=== PATIENT | female | born 1990 | race Caucasian/White ===

== ENCOUNTER 2016-04-18 13:34 | Emergency (ER) | payer OTHER ==
[2016-04-18 13:44] VITALS: BP 144/82; PULSE 89; RESP 18; TEMP 97.3
--- NOTE | 2016-04-18 13:57 | ED ---
URI HPI - General Chief Complaint: Upper Respiratory Infection Stated Complaint: poss pneumonia/9 mos preg Time Seen by Provider: 04/18/16 13:46 Source: patient, RN notes reviewed Mode of arrival: ambulatory Limitations: no limitations - History of Present Illness Initial Comments: Patient's 26-year-old female presents emergency room for evaluation of cough and congestion. Patient states she's had congestion for the past week and a half. Patient states a 36 weeks . Patient states she's been taking the "safe Sudafed" and Tylenol with no relief of symptoms. Patient states over the past day or symptoms worse. Patient states having all over body aches, increased congestion and a productive cough. Patient states she is spitting up green mucus. Patient states she's also experiencing a headache and bilateral ear pain. Patient also states she has a slight sore throat. Patient states been having on and off late fevers. He denies nausea or vomiting. Patient denies abdominal pain. Patient states she didn't so filthy moving. Patient denies vaginal bleeding. Patient states she still smokes daily. She states she did receive her influenza vaccine this year. - Related Data Home Medications Medication Instructions Recorded Confirmed Acetaminophen Tab [Tylenol Tab] 1,000 mg PO Q6HR 04/15/16 04/15/16 Guaifenesin/Dextromethorphan 1 each PO 04/15/16 [Robitussin Scolq-Orngq-Ocuf Dm] Previous Rx's Medication Instructions Recorded Azithromycin [Zithromax Z-pack] 250 mg PO DIRECTED #6 tab 04/18/16 Allergies Allergy/AdvReac Type Severity Reaction Status Date / Time No Known Allergies Allergy Verified 04/18/16 13:45 Review of Systems ROS Statement: Those systems with pertinent positive or pertinent negative responses have been documented in the HPI. ROS Other: All systems not noted in ROS Statement are negative. Past Medical History Additional Past Medical History / Comment(s): back pain. benign tremors History of Any Multi-Drug Resistant Organisms: None Reported Additional Past Surgical History / Comment(s): 2 foot surgeries Past Psychological History: Anxiety, Depression, Panic Disorder Smoking Status: Light tobacco smoker Past Alcohol Use History: Rare Past Drug Use History: None Reported General Exam - General Exam Comments Initial Comments: Sitting in exam room, no acute distress. Limitations: no limitations General appearance: alert, in no apparent distress Head exam: Present: atraumatic, normocephalic, normal inspection Eye exam: Present: normal appearance ENT exam: Present: normal exam, mucous membranes moist, TM's normal bilaterally , normal external ear exam, other (pain on palpating over bilateral maxilary sinuses ) Expanded Throat exam: normal inspection Neck exam: Present: normal inspection Respiratory exam: Present: normal lung sounds bilaterally. Absent: respiratory distress Cardiovascular Exam: Present: regular rate, normal rhythm, normal heart sounds Extremities exam: Present: normal inspection Back exam: Present: normal inspection Neurological exam: Present: alert, oriented X3, CN II-XII intact, normal gait Psychiatric exam: Present: normal affect, normal mood Skin exam: Present: warm, dry, intact, normal color. Absent: rash Course Vital Signs 04/18/16 13:41 Temperature 97.3 F L Pulse Rate 89 Respiratory 18 Rate Blood Pressure 144/82 O2 Sat by Pulse 97 Oximetry Medical Decision Making - Medical Decision Making Patient's 26-year-old female presents emergency room for upper respiratory symptoms for a week and a half. Influenza negative. Will place patient on antibiotics and have her follow-up with her primary care provider. Patient states she understands everything that was discussed with her. Return parameters discussed. - Lab Data Lab Results 04/18/16 Range/Units 13:51 Influenza Type A RNA Not Detected (Not Detectd) Influenza Type B (PCR) Not Detected (Not Detectd) Disposition Clinical Impression: Sinusitis Disposition: HOME SELF-CARE Condition: Good Instructions: Rhinosinusitis (ED) Additional Instructions: Take antibiotics as directed. Please follow-up with primary care provider in 24 -48 hours for reevaluation. If any new symptom arises, symptoms worsen or fever develops, return to ER as soon as possible. Prescriptions: Azithromycin [Zithromax Z-pack] 250 mg PO DIRECTED #6 tab Referrals: Dano Parra MD [Primary Care Provider] - 1-2 days Time of Disposition: 14:48
== END 2016-04-18 15:00 | disposition home or self-care (01) ==
LOC: EC 13:34
DX: O26.893 Other specified pregnancy related conditions, third trimester (principal); J32.9 Chronic sinusitis, unspecified; Z79.899 Other long term (current) drug therapy; Z3A.36 36 weeks gestation of pregnancy
CPT/HCPCS: 87502; 99283

== ENCOUNTER 2016-05-07 13:24 | Emergency (ER) | payer OTHER ==
[2016-05-07 13:31] VITALS: BP 164/79; PULSE 61; RESP 18; TEMP 97.3
[2016-05-07] MEDS ORDERED: FLUCONAZOLE 150 MG TAB PO STA (13:47)
--- NOTE | 2016-05-07 13:51 | ED ---
Female Urogenital HPI - General Chief complaint: Urogenital Stated complaint: Stiches / Pain/irratation Time Seen by Provider: 05/07/16 13:42 Source: patient, RN notes reviewed Mode of arrival: ambulatory Limitations: no limitations - History of Present Illness Initial comments: 26 yo female presents to the ER with a chief complaint of vaginal itching and dryness. Patient states that she recently did have a child about a week ago. Patient states that her stitches are itchy but she is also just having some itching and dryness to the vaginal area. Patient states that she has less little bit of white discharge as well. Patient denies any fever or chills. Patient states that she is still having some bleeding associated with this. Patient denies any abdominal pain. Patient states that she try to see [employer] in town however they referred her cardiac him here to be seen. Patient states that she is not currently having any other symptoms at this time. Patient denies any recent fever, chills, shortness of breath, chest pain, back pain, abdominal pain, nausea vomiting, numbness or tingling, dysuria or hematuria, constipation or diarrhea, headaches or visual changes, or any other current symptoms. - Related Data Home Medications Medication Instructions Recorded Confirmed Docusate [Colace] 100 mg PO HS 05/07/16 05/07/16 Ferrous Sulfate [Feosol] 325 mg PO DAILY 05/07/16 05/07/16 Ibuprofen [Motrin] 600 mg PO Q8HR PRN 05/07/16 05/07/16 Previous Rx's Medication Instructions Recorded Fluconazole [Diflucan] 150 mg PO ONCE #1 tab 05/07/16 Allergies Allergy/AdvReac Type Severity Reaction Status Date / Time No Known Allergies Allergy Verified 05/07/16 13:41 Review of Systems ROS Statement: Those systems with pertinent positive or pertinent negative responses have been documented in the HPI. ROS Other: All systems not noted in ROS Statement are negative. Past Medical History Additional Past Medical History / Comment(s): back pain. benign tremors History of Any Multi-Drug Resistant Organisms: None Reported Additional Past Surgical History / Comment(s): 2 foot surgeries Past Psychological History: Anxiety, Depression, Panic Disorder Smoking Status: Light tobacco smoker Past Alcohol Use History: None Reported Past Drug Use History: None Reported General Exam Limitations: no limitations Head exam: Present: atraumatic, normocephalic, normal inspection Respiratory exam: Present: normal lung sounds bilaterally. Absent: respiratory distress, wheezes, rales, rhonchi, stridor Cardiovascular Exam: Present: regular rate, normal rhythm, normal heart sounds. Absent: systolic murmur, diastolic murmur, rubs, gallop, clicks GI/Abdominal exam: Present: soft, normal bowel sounds. Absent: distended, tenderness, guarding, rebound, rigid External exam: Present: lacerations (Sutures are intact well healing no drainage or induration), other (Patient does appear to have some white discharge along with blood) Extremities exam: Present: normal inspection, full ROM, normal capillary refill. Absent: tenderness, pedal edema, joint swelling, calf tenderness Back exam: Present: normal inspection Neurological exam: Present: alert, oriented X3, CN II-XII intact. Absent: motor sensory deficit Psychiatric exam: Present: normal affect, normal mood Skin exam: Present: warm, dry, intact, normal color. Absent: rash Course Vital Signs 05/07/16 13:27 Temperature 97.3 F L Pulse Rate 61 Respiratory 18 Rate Blood Pressure 164/79 O2 Sat by Pulse 98 Oximetry Medical Decision Making - Medical Decision Making 26-year-old female presents female presents to the emergency room chief complaint of vaginal itching and what appears to white discharge. This time we discussed that is most likely bubble candidiasis. This time we discussed we will give her a pill here that should clear it up. Discussed follow-up with her [employer] we discussed return parameters. The patient stated that she understood all cushions have been answered. She will be discharged. Disposition Clinical Impression: Vulvovaginal candidiasis Disposition: HOME SELF-CARE Condition: Stable Instructions: Vulvovaginal Candidiasis (ED) Additional Instructions: Please use medication as discussed. Please follow up with family doctor if symptoms have not improved over the next two days. Please return to the emergency room if your symptoms increase or worsen or for any other concerns. Prescriptions: Fluconazole [Diflucan] 150 mg PO ONCE #1 tab Referrals: Dano Parra MD [Primary Care Provider] - 1-2 days Time of Disposition: 13:50
== END 2016-05-07 14:00 | disposition home or self-care (01) ==
LOC: EC 13:24
DX: B37.3 Candidiasis of vulva and vagina (principal); F17.200 Nicotine dependence, unspecified, uncomplicated; Z79.899 Other long term (current) drug therapy
CPT/HCPCS: 99282

== ENCOUNTER → 2016-09-13 | Outpatient (CLI) | payer OTHER ==
--- NOTE | 2016-09-13 11:44 | XR ---
EXAM TYPE: LUMBAR SPINE X RAY SERIES COMPARISON: 04/20/2015 HISTORY: Lower back pain TECHNIQUE: 4 views are submitted. FINDINGS: Alignment is anatomic. The pedicles are intact. The transverse processes are intact. There is no s pondylolysis or spondylolisthesis. Minimal curvature of the spine. Mild facet arthropathy L5-S1. Mild loss of disc space at multiple lev els with severe changes L5-S1. IMPRESSION: 1. Multilevel degenerative disc disease with severe changes L5-S1 which appears stable.
== END | disposition home or self-care (01) ==
LOC: RADXRMAIN 11:05
PROVIDERS: ATTEND Family Medicine
DX: M51.37 Other intervertebral disc degeneration, lumbosacral region (principal)
CPT/HCPCS: 72110

== ENCOUNTER → 2016-10-29 | Outpatient (CLI) | payer OTHER ==
--- NOTE | 2016-10-29 15:38 | MR ---
EXAMINATION TYPE: MR lumbar spine wo con DATE OF EXAM: 10/29/2016 COMPARISON: Prior lumbar MRI 11/21/2014 and plain film 09/13/2016 HISTORY: low back pain TECHNIQUE: Multiplanar, multisequence images of the lumbar spine were acquired. L1-L2: Normal disc appearance without desiccation. No herniation, protrusion or disc bulging. No ca nal stenosis is present. Foramina are patent bilaterally. L2-L3: Normal disc appearance without desiccation. No herniation, protrusion or disc bulging. No ca nal stenosis is present. Foramina are patent bilaterally. L3-L4: Normal disc appearance without desiccation. No herniation, protrusion or disc bulging. No ca nal stenosis is present. Foramina are patent bilaterally. L4-L5: Small central posterior disc bulge causes anterior mass effect on the thecal sac. No significa nt central stenosis. L5-S1: Interval right posterior paracentral disc herniation with extension of disc material posterior to the S1 vertebral body likely contacting causing mass effect on the right S1 nerve root, anterior lateral thecal sac. Circumferential extension of endplate disc complex is noted as on prior exam. Lumbar segments are intact. No paraspinal masses are identified. Conus medullaris has a normal appe arance. There is a spinal curvature. Lumbar vertebral bodies show preserved height. Minimal retrolist hesis grade 1 L5-S1, endplate discogenic marrow signal change is present with associated loss of disc height and signal, loss of disc height and signal also present at L4-5. IMPRESSION: Interval progression of disc herniation L5-S1 as described, correlate for right S1 radiculopathy. Spi nal curvature.
== END ==
LOC: RADMRIMAIN 13:44
PROVIDERS: ATTEND Family Medicine
DX: M51.27 Other intervertebral disc displacement, lumbosacral region (principal)
CPT/HCPCS: 72148

== ENCOUNTER 2017-01-04 14:02 | Emergency (ER) | payer OTHER ==
[2017-01-04 14:16] VITALS: BP 135/62; PULSE 70; RESP 18; TEMP 97.5
--- NOTE | 2017-01-04 14:26 | ED ---
General Adult HPI - General Chief complaint: Dental/Oral Stated complaint: Dental Pain Time Seen by Provider: 01/04/17 14:16 Source: patient, RN notes reviewed Mode of arrival: ambulatory Limitations: no limitations - History of Present Illness Initial comments: Patient 26-year-old female who presents emergency room today with a chief complaint of increased dental pain. She has mid to a dental fracture of tooth # 15 and 14. States she's having several months ago. She states over the last few days she's had some increased pain. She admits to a copper taste. She admits to feeling some pain radiate to the left cheek area. She states feels flushed on that side. She denies any other complaints or associated symptoms. Patient denies any recent fever, chills, shortness of breath, chest pain, back pain, abdominal pain, nausea or vomiting, numbness or tingling, dysuria or hematuria, constipation or diarrhea, headaches or visual changes, or any other complaints. - Related Data Home Medications Medication Instructions Recorded Confirmed Docusate [Colace] 100 mg PO HS 05/07/16 05/07/16 Ferrous Sulfate [Feosol] 325 mg PO DAILY 05/07/16 05/07/16 Ibuprofen [Motrin] 600 mg PO Q8HR PRN 05/07/16 05/07/16 Previous Rx's Medication Instructions Recorded Fluconazole [Diflucan] 150 mg PO ONCE #1 tab 05/07/16 Acetaminophen-Codeine 300-30mg 1 each PO Q6H PRN #15 tablet 01/04/17 [Tylenol #3] Penicillin V Potassium [Pen Vee K] 500 mg PO QID 10 Days 01/04/17 Allergies Allergy/AdvReac Type Severity Reaction Status Date / Time No Known Allergies Allergy Verified 05/07/16 13:41 Review of Systems ROS Statement: Those systems with pertinent positive or pertinent negative responses have been documented in the HPI. ROS Other: All systems not noted in ROS Statement are negative. Past Medical History Additional Past Medical History / Comment(s): back pain. benign tremors History of Any Multi-Drug Resistant Organisms: None Reported Additional Past Surgical History / Comment(s): 2 foot surgeries Past Psychological History: Anxiety, Depression, Panic Disorder Smoking Status: Light tobacco smoker Past Alcohol Use History: None Reported Past Drug Use History: None Reported General Exam - General Exam Comments Initial Comments: General: The patient is awake and alert, in no distress, and does not appear acutely ill. Eye: Pupils are equal, round and reactive to light, extra-ocular movements are intact. No nystagmus. There is normal conjunctiva bilaterally. No signs of icterus. Ears, nose, mouth and throat: There are moist mucous membranes and no oral lesions. Poor dental hygiene. Does have some dental fractures of 14/15. She is locally tender in the gumline. No sign of abscess. Uvula midline. Patient swallows without difficulty. Neck: The neck is supple, there is no tenderness or JVD. Cardiovascular: There is a regular rate and rhythm. No murmur, rub or gallop is appreciated. Respiratory: Lungs are clear to auscultation, respirations are non-labored, breath sounds are equal. No wheezes, stridor, rales, or rhonchi. Musculoskeletal: Normal ROM, no tenderness. Strength 5/5. Sensation intact. Pulses equal bilaterally 2+. Neurological: A&O x 3. CN II-XII intact, There are no obvious motor or sensory deficits. Coordination appears grossly intact. Speech is normal. Skin: Skin is warm and dry and no rashes or lesions are noted. Psychiatric: Cooperative, appropriate mood & affect, normal judgment. Limitations: no limitations Course Vital Signs 01/04/17 14:12 Temperature 97.5 F L Pulse Rate 70 Respiratory 18 Rate Blood Pressure 135/62 O2 Sat by Pulse 98 Oximetry Disposition Clinical Impression: Pain, dental Disposition: HOME SELF-CARE Condition: Good Instructions: Dental Abscess (ED) Additional Instructions: Please use antibiotic and pain medication as prescribed and return here to the emergency room symptoms increase worsen. Please follow-up dentist over the next 2-5 days. Prescriptions: Acetaminophen-Codeine 300-30mg [Tylenol #3] 1 each PO Q6H PRN #15 tablet PRN Reason: Pain Penicillin V Potassium [Pen Vee K] 500 mg PO QID 10 Days Referrals: Dano Parra MD [Primary Care Provider] - 1-2 days Time of Disposition: 14:25
== END 2017-01-04 15:00 | disposition home or self-care (01) ==
LOC: EC 14:02
DX: S02.5XXA Fracture of tooth (traumatic), initial encounter for closed fracture (principal); F17.200 Nicotine dependence, unspecified, uncomplicated; Z79.899 Other long term (current) drug therapy; X58.XXXA Exposure to other specified factors, initial encounter
CPT/HCPCS: 99282

== ENCOUNTER → 2017-01-11 | Outpatient (CLI) | payer OTHER ==
[2017-01-11 14:29] VITALS: BP 150/83; PULSE 56; RESP 56; TEMP 98.3
--- NOTE | 2017-01-12 08:23 | P.CONS ---
History of Present Illness - Reason for Consult Consult date: 01/11/17 - History of Present Illness This is 26 years old female with a chronic history of severe low back pain started 5 years ago, she denies any initiating event she reported the pain started while she was trying to get out of bed, she denies any history of trauma or car accidents or heavy lifting, the pain is constant radiated to the lower extremity she describes her pain as a cramping shooting pain associated with spasm in the lower extremity radiated to the lower extremity bilaterally but it is more intense on the right side, she never tried physical therapy she tried different kind of pain medication and she reports none of them helped significantly, she describes the intensity of the pain as 6/10 and increases with any activity walking bending, sitting all these factors aggravate her pain , is currently on Robaxin 750 mg 3 times a day and Gardner 5/325 2 times a day, she denies any fever or night sweats she denies any change in the bowel movement or urination and she had no motor or sensory deficits, and she denies any side effect of the medication Past Medical History Additional Past Medical History / Comment(s): 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, herniated disks, sciatica History of Any Multi-Drug Resistant Organisms: None Reported Additional Past Surgical History / Comment(s): 2 left foot surgeries(ORIF) Past Anesthesia/Blood Transfusion Reactions: No Reported Reaction Smoking Status: Current every day smoker - Past Family History Mother Family Medical History: No Reported History Medications and Allergies Home Medications Medication Instructions Recorded Confirmed Type Diclofenac Sodium [Voltaren] 75 mg PO BID 01/09/17 01/09/17 History Hydrocodone/Acetaminophen [Gardner 1 tab PO BID PRN 01/09/17 01/09/17 History 5-325] Norgestimate-Ethinyl Estradiol 1 each PO DAILY 01/09/17 01/09/17 History [Ortho Tri-Cyclen 28 Tablet] PARoxetine [Paxil] 20 mg PO DAILY 01/09/17 01/09/17 History Methocarbamol [Robaxin-750] 1 tab PO TID 01/11/17 01/11/17 History Penicillin V Potassium [Pen Vee K] 1 tab PO BID 01/11/17 01/11/17 History Allergies Allergy/AdvReac Type Severity Reaction Status Date / Time No Known Allergies Allergy Verified 01/09/17 14:36 Physical Exam Vitals: Vital Signs Temp Pulse Resp BP Pulse Ox 01/11/17 14:20 98.3 F 56 L 56 H 150/83 98 Social history : smoker , NO ETOH , NO Illegal drugs use Review of Systems : 1- Constitutional : no chills , no fever , no night sweats , 2- Ears : no ear discharge , no change in hearing 3-Nose, Mouth ,Throat ; no bleeding gums, no sore throat , no epistaxis , 4-Cardiovascular : Denies chest pain, , no orthopnea , no palpitation 5-Respiratory : Denies cough , no dyspnea , no hemoptysis 6-Gastrointestinal :, no change in bowel habits , no coffee- ground emesis . 7-Genitourinary : No hematuria , no discharge , no incontinence, 8-Musculoskeletal : No gait dysfunction , report low back pain , 9- Neurological : no ataxia , no tremor , no sezure , 10-Psychatric , no suicidal ideation no hallucination 11- Endocrine : no cold intolerence , no polyuria , no polydypsia , 12-Hematologic : no easy bleeding , no easy brusing , 13-Allergic / immunology : no angioedema , no wheezing ,no allergic rhinitis 14-Integumentary : no brttle nails , no change hair / nails , no foot/leg ulcers . Physical Examinations : 1-Constitutional : Cooperative , not in acute distress . 2-HEENT : nech ; supple , no Lymphadenopathy , no Thyromegaly , :eyes , no icterus, no photophobia . ENT : , normal oropharynx , no Thrush 3- Respiratory : Chest clear to auscultations Bilaterally , no wheezing . 4- Cardiovascular : regular rate and rhythem , S1 , S2 , no S3 , no S4. 5- Gastrointestinal: abdomen soft no tenderness , no organomegally . 6- Genitourinary : Defferred . 7-Integumentary : No cellulitis , no ulcers , normal skin turgor , no cyanotic . 8- neurologic : Cranial nerve II to XII intact , no focal neurological deffecit 9-psychatric : alert , oriented X 3 , appropriate affect , intact judgment and insight . 10-Lymphatic : no Lymphadenopathy. 11- musculoskeltal: Lumber spine moter stegnth lower extremities ,thigh and legs 5/5 Right side , 5/5 Left side deep tendon reflexes : normal Knee Jerk , normal ankle Jerk positive lumber facet Loading Test Range of motion of the lumbar spine Flexion 30 degrees, extension 10 degrees strait leg raising test , positive at 30 degree right side , positive on the left side at 45 Fabere test positive RT and positive LT . Results Comments: MRI of the lumbar spine= L5-S1 disc herniation, L4 5 disc bulging Assessment and Plan Plan: Assessment and plan= Lumbar radiculitis, lumbar herniated disc disease Recommend discontinuing Robaxin patient reported that she had no benefit from it, start patient on Zanaflex 4 mg every 8 hours, start patient on Motrin 800 mg 3 times a day, start Neurontin 300 mg daily at bedtime and increase gradually to twice a day Patient should continue her pain medication Gardner's 5/325 , she is getting prescriptions from her primary care Referred patient to have physical therapy evaluation and treatment, patient could benefit from lumbar epidural steroid injections under fluoroscopy guidance procedure risks and benefits and alternatives discussed with the patient and she agreed with proceeding Time with Patient: Greater than 30
== END | disposition home or self-care (01) ==
LOC: PNWHC3 13:47
PROVIDERS: ATTEND Specialist
DX: M51.16 Intervertebral disc disorders with radiculopathy, lumbar region (principal); F17.200 Nicotine dependence, unspecified, uncomplicated; Z79.891 Long term (current) use of opiate analgesic; Z79.899 Other long term (current) drug therapy
CPT/HCPCS: 99211

== ENCOUNTER 2017-06-10 17:16 | Emergency (ER) | payer OTHER ==
[2017-06-10 17:26] VITALS: BP 129/68; PULSE 78; RESP 20; TEMP 97
--- NOTE | 2017-06-10 17:56 | ED ---
ENT HPI - General Chief complaint: Dental/Oral Stated complaint: dental pain Time Seen by Provider: 06/10/17 17:34 Source: patient, RN notes reviewed Mode of arrival: ambulatory Limitations: no limitations - History of Present Illness Initial comments: This is a 27 year old female who presents to the emergency department with chief complaint of dental pain. Patient states that she developed left-sided dental pain 2-3 weeks ago. She states that she feels like she may have an abscess. She states that she does not have a dentist to follow-up with. She complains of pain in the left upper and lower molars. She states that at night the pain gets worse and she develops swelling of her left cheek. Denies any drainage. Denies any fevers or chills. Denies chest pain, shortness of breath, abdominal pain, nausea or vomiting, constipation or diarrhea, dysuria or hematuria, numbness or tingling, headache or vision changes. - Related Data Home Medications Medication Instructions Recorded Confirmed Diclofenac Sodium [Voltaren] 75 mg PO BID 01/09/17 03/02/17 Norgestimate-Ethinyl Estradiol 1 each PO DAILY 01/09/17 03/02/17 [Ortho Tri-Cyclen 28 Tablet] PARoxetine [Paxil] 20 mg PO DAILY 01/09/17 03/02/17 Methocarbamol [Robaxin-750] 1 tab PO TID 01/11/17 03/02/17 Gabapentin [Neurontin] 300 mg PO BID 03/02/17 03/02/17 tiZANidine [Zanaflex] 4 mg PO Q8HR 03/02/17 03/02/17 Previous Rx's Medication Instructions Recorded Ibuprofen 600 mg PO Q6HR #20 tablet 06/10/17 Penicillin V Potassium [Pen Vee K] 500 mg PO QID 10 Days tab 06/10/17 Allergies Allergy/AdvReac Type Severity Reaction Status Date / Time No Known Allergies Allergy Verified 06/10/17 17:26 Review of Systems ROS Statement: Those systems with pertinent positive or pertinent negative responses have been documented in the HPI. ROS Other: All systems not noted in ROS Statement are negative. Past Medical History Additional Past Medical History / Comment(s): 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, herniated disks, sciatica. WAS DX YEARS AGO WITH BENIGN TREMORS IN HANDS. lumbar epidural History of Any Multi-Drug Resistant Organisms: None Reported Additional Past Surgical History / Comment(s): 2 left foot surgeries(ORIF), HAVING FIRST PAIN PROCEDURE TODAY Past Anesthesia/Blood Transfusion Reactions: No Reported Reaction, Motion Sickness Past Psychological History: Anxiety, Bipolar, Depression, Panic Disorder Smoking Status: Current every day smoker Past Alcohol Use History: None Reported Past Drug Use History: Marijuana - Past Family History Mother History Unknown: Yes Family Medical History: No Reported History Additional Family Medical History / Comment(s): MOM HAD THYROID CANCER General Exam - General Exam Comments Initial Comments: General: Awake and alert, well-developed; in no apparent distress. Sitting on ED stretcher drinking a can of Coke. HEENT: Head atraumatic, normocephalic. Pupils are equal, round and reactive to light. Extraocular movements intact. Oropharynx moist without erythema or exudate. Poor dentition throughout with multiple missing teeth and dental caries. Tenderness on palpation of upper left and lower left gumline. Tooth # 15 and #18 are noted to be brown in appearance and missing pieces of the crown. No masses or areas of fluctuance noted. Neck: Supple. Normal ROM. Cardiovascular: Regular rate and rhythm. No murmurs, rubs or gallops. Chest symmetrical. Respiratory: Lungs clear to auscultation bilaterally. No wheezes, rales or rhonchi. Normal respiratory effort with no use of accessory muscles. Musculoskeletal: Normal ROM, no tenderness bilateral upper and lower extremities. Ambulating normally. Skin: [place], warm and dry without rashes or lesions. Neurological: Alert and oriented x3. CN II-XII grossly intact. Speech is fluent and answers are appropriate. No focal neuro deficits. Psychiatric: Normal mood and affect. No overt signs of depression or anxiety noted. Limitations: no limitations Course Vital Signs 06/10/17 17:24 Temperature 97.0 F L Pulse Rate 78 Respiratory 20 Rate Blood Pressure 129/68 O2 Sat by Pulse 96 Oximetry Medical Decision Making - Medical Decision Making This is a 27-year-old female who presents to the emergency department with chief complaint of dental pain. No masses or areas of fluctuance are noted. Patient has very poor dentition throughout out. She will be started on antibiotics as well as ibuprofen. Patient is in no acute distress and vital signs are stable. She will be discharged home. Recommended follow-up with a dentist. She is in agreement with plan and voices understanding. All questions were answered. Disposition Clinical Impression: Toothache, Dental caries Disposition: HOME SELF-CARE Condition: Good Instructions: Dental Caries (ED), Toothache (ED) Additional Instructions: Please take medications as prescribed. Please follow up with primary care provider within 1-2 days. Return to emergency department if symptoms should worsen or any concerns arise. Please follow up with the [facility] dental clinic. [facility] [place] [address]. Phone number for new patients or [phone] for existing patients. Prescriptions: Ibuprofen 600 mg PO Q6HR #20 tablet Penicillin V Potassium [Pen Vee K] 500 mg PO QID 10 Days tab Referrals: Dano Parra MD [Primary Care Provider] - 1-2 days Time of Disposition: 17:55
== END 2017-06-10 17:58 | disposition home or self-care (01) ==
LOC: EC 17:16
DX: K02.9 Dental caries, unspecified (principal); M19.90 Unspecified osteoarthritis, unspecified site; F41.9 Anxiety disorder, unspecified; F31.9 Bipolar disorder, unspecified; F17.200 Nicotine dependence, unspecified, uncomplicated; Z79.1 Long term (current) use of non-steroidal anti-inflammatories (NSAID); Z79.3 Long term (current) use of hormonal contraceptives; Z79.899 Other long term (current) drug therapy
CPT/HCPCS: 99282

== ENCOUNTER 2017-07-08 18:36 | Emergency (ER) | payer OTHER ==
[2017-07-08] MEDS ORDERED: DIPH,PERTUS(ACELL)TETVAC-LF 0.5 ML VIAL IM ONE (18:51)
--- NOTE | 2017-07-08 18:56 | ED ---
Wound/Laceration HPI - General Chief Complaint: Wound/Laceration Stated Complaint: Head injury,fall Time Seen by Provider: 07/08/17 18:37 Source: patient, EMS, RN notes reviewed, old records reviewed Mode of arrival: EMS Limitations: no limitations - History of Present Illness Initial Comments: 27-year-old female persist emergency Department chief complaint laceration over her scalp and a fall from standing. She reports that she was going down the stairs and tripped over her slippers. Patient reports that she fell backward in her head on the spindle of the handrail. She states that she noticed on the blood and call the ambulance and was brought here. She states that she's had no loss conscious. She denies any significant neck pain. She does have range of motion. She is placed in a c-collar and her from EMS. Patient has had no other extremity injuries or any other injuries related to the fall. - Related Data Home Medications Medication Instructions Recorded Confirmed Methocarbamol [Robaxin-750] 750 mg PO QID PRN 01/11/17 07/08/17 DULoxetine HCL [Cymbalta] 30 mg PO BID 06/10/17 07/08/17 Gabapentin [Neurontin] 300 mg PO BID 06/10/17 07/08/17 Norg-Ee 1 tab PO DAILY 06/10/17 07/08/17 Primidone [Mysoline] 50 mg PO DAILY 06/10/17 07/08/17 clonazePAM [KlonoPIN] 1 mg PO Q12H 06/10/17 07/08/17 Ibuprofen 600 mg PO Q6HR PRN 07/08/17 07/08/17 Allergies Allergy/AdvReac Type Severity Reaction Status Date / Time No Known Allergies Allergy Verified 07/08/17 19:57 Review of Systems ROS Statement: Those systems with pertinent positive or pertinent negative responses have been documented in the HPI. ROS Other: All systems not noted in ROS Statement are negative. Past Medical History Additional Past Medical History / Comment(s): 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, herniated disks, sciatica. WAS DX YEARS AGO WITH BENIGN TREMORS IN HANDS. lumbar epidural History of Any Multi-Drug Resistant Organisms: None Reported Additional Past Surgical History / Comment(s): 2 left foot surgeries(ORIF), HAVING FIRST PAIN PROCEDURE TODAY Past Anesthesia/Blood Transfusion Reactions: No Reported Reaction, Motion Sickness Past Psychological History: Anxiety, Bipolar, Depression, Panic Disorder Smoking Status: Current every day smoker Past Alcohol Use History: None Reported Past Drug Use History: Marijuana - Past Family History Mother History Unknown: Yes Family Medical History: No Reported History Additional Family Medical History / Comment(s): MOM HAD THYROID CANCER General Exam - General Exam Comments Initial Comments: This is a 27-year-old female. Alert and oriented. No distress. Limitations: no limitations General appearance: alert, in no apparent distress Head exam: Present: normocephalic, normal inspection, other (5.5 cm laceration over the left parietal scalp.). Absent: atraumatic Eye exam: Present: normal appearance, PERRL, EOMI. Absent: scleral icterus, conjunctival injection, periorbital swelling ENT exam: Present: normal exam, mucous membranes moist Neck exam: Present: normal inspection. Absent: tenderness, meningismus, lymphadenopathy Respiratory exam: Present: normal lung sounds bilaterally. Absent: respiratory distress, wheezes, rales, rhonchi, stridor Cardiovascular Exam: Present: regular rate, normal rhythm, normal heart sounds. Absent: systolic murmur, diastolic murmur, rubs, gallop, clicks GI/Abdominal exam: Present: soft, normal bowel sounds. Absent: distended, tenderness, guarding, rebound, rigid Extremities exam: Present: normal inspection, full ROM, normal capillary refill. Absent: tenderness, pedal edema, joint swelling, calf tenderness Back exam: Present: normal inspection Psychiatric exam: Present: normal affect, normal mood Skin exam: Present: warm, dry, intact, normal color. Absent: rash Course Vital Signs 07/08/17 07/08/17 18:43 20:05 Temperature 98.6 F Pulse Rate 80 67 Respiratory 20 16 Rate Blood Pressure 152/91 128/71 O2 Sat by Pulse 97 97 Oximetry Procedures - Laceration Laceration #1 Site: scalp Size (cm): 6 Description: linear Depth: simple, single layer Pre-repair: wound explored, irrigated extensively Type of Sutures: other (mateusz) Number of Sutures: 7 Patient Tolerated Procedure: well, no complications Medical Decision Making - Medical Decision Making 27-year-old female persist emergency Department chief complaint laceration over her scalp and a fall from standing. She reports that she was going down the stairs and tripped over her slippers. Patient reports that she fell backward in her head on the spindle of the handrail. She states that she noticed on the blood and call the ambulance and was brought here. She states that she's had no loss conscious. She has a 5.5 cm laceration over scalp, irrigated and cleaned. She was given 7 mateusz and wound closed well. PAtient CT brain is normal. Advised on head injury instructions and suture care. Given tetanus update as well. All questions answered and return parametrs discussed. - Radiology Data Radiology results: report reviewed CT brain is a for intracranial hemorrhage. Mass effect or midline shift noted. No significant changes from prior. Disposition Clinical Impression: Scalp laceration, Fall Disposition: HOME SELF-CARE Condition: Good Instructions: Staple Care (ED) Additional Instructions: Please return to the emergency room in 8-10 days to have sutures removed. Please leave wound covered for the first 24-48 hours and then leave open to air after that time. Please use clean soap and water to clean the suture area to prevent scabbing over the top of your sutures. Please watch for any signs of infection which may include but not limited to increased pain, swelling, redness , fever or chills. Please return to the emergency room if any signs of infection do occur. Please return to the emergency room for any other concerns or complications. Referrals: Dano Parra MD [Primary Care Provider] - 1-2 days Time of Disposition: 19:49
--- NOTE | 2017-07-08 19:46 | CT ---
EXAMINATION TYPE: CT brain wo con DATE OF EXAM: 07/08/2017 COMPARISON: CT brain April 07, 2015 HISTORY: Fall, head injury left top of scalp laceration CT DLP: 1017.9 mGycm. Automated Exposure Control for Dose Reduction was Utilized. TECHNIQUE: CT scan of the head is performed without contrast. FINDINGS: There is no acute intracranial hemorrhage, mass effect, or midline shift identified. The ventricles and sulci are within normal limits in size. The globes are intact bilaterally. Mucous re tention cysts or polyps in bilateral maxillary sinuses are redemonstrated. The calvarium is intact. IMPRESSION: No acute intracranial hemorrhage, mass effect, or midline shift is seen. No significant change from prior.
[2017-07-08 22:45] VITALS: BP 128/71; PULSE 67; RESP 16; TEMP 98.6
== END 2017-07-08 20:06 | disposition home or self-care (01) ==
LOC: EC 18:36
DX: S01.01XA Laceration without foreign body of scalp, initial encounter (principal); F31.9 Bipolar disorder, unspecified; F41.9 Anxiety disorder, unspecified; F41.0 Panic disorder [episodic paroxysmal anxiety]; F17.200 Nicotine dependence, unspecified, uncomplicated; Z79.899 Other long term (current) drug therapy; Z79.3 Long term (current) use of hormonal contraceptives; Z23 Encounter for immunization; W10.9XXA Fall (on) (from) unspecified stairs and steps, initial encounter; Y92.009 Unspecified place in unspecified non-institutional (private) residence as the place of occurrence of the external cause
CPT/HCPCS: 12002; 70450; 90471; 90715; 99284

== ENCOUNTER 2017-11-29 18:38 | Emergency (ER) | payer OTHER ==
[2017-11-29 18:53] VITALS: TEMP 98.1
[2017-11-29] MEDS ORDERED: PHENAZOPYRIDINE 200 MG TAB PO STA (19:41)
--- NOTE | 2017-11-29 19:44 | ED ---
Female Urogenital HPI - General Chief complaint: Urogenital Stated complaint: UTI, Urogenital Time Seen by Provider: 11/29/17 19:23 Source: patient Mode of arrival: ambulatory Limitations: no limitations - History of Present Illness Initial comments: 27-year-old female patient presents to the emergency department today for evaluation of dysuria and urinary frequency. Patient states she started having symptoms at the end of last week. Patient states that the pain and burning has worsened. States whenever she urinates the burning and sharp stabbing pain to her suprapubic region last for a long time. Patient states she has been nauseated have a couple episodes of vomiting over the weekend. States that she has had temperatures up to 99.0F. Patient states she has had urinary tract infections in the past but none that never felt like this. States she has increase fluids and started taking Pyridium without much relief of symptoms. She denies any chance of . Denies any abnormal vaginal bleeding or discharge. Patient denies any recent rash, shortness breath, chest pain, diarrhea, constipation, numbness, tingling, dizziness, weakness, headache, visual changes, or any other complaints. Last Menstrual Period: 11/01/17 - Related Data Home Medications Medication Instructions Recorded Confirmed DULoxetine HCL [Cymbalta] 30 mg PO BID 06/10/17 11/29/17 Gabapentin [Neurontin] 300 mg PO BID 06/10/17 11/29/17 Primidone [Mysoline] 50 mg PO DAILY 06/10/17 11/29/17 Previous Rx's Medication Instructions Recorded Sulfamethoxazole/Trimethoprim 1 each PO BID #14 tablet 11/29/17 [Bactrim DS 800-160 mg] Allergies Allergy/AdvReac Type Severity Reaction Status Date / Time No Known Allergies Allergy Verified 11/29/17 18:52 Review of Systems ROS Statement: Those systems with pertinent positive or pertinent negative responses have been documented in the HPI. ROS Other: All systems not noted in ROS Statement are negative. Past Medical History Additional Past Medical History / Comment(s): 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, herniated disks, sciatica. WAS DX YEARS AGO WITH BENIGN TREMORS IN HANDS. lumbar epidural History of Any Multi-Drug Resistant Organisms: None Reported Additional Past Surgical History / Comment(s): 2 left foot surgeries(ORIF), HAVING FIRST PAIN PROCEDURE TODAY Past Anesthesia/Blood Transfusion Reactions: No Reported Reaction, Motion Sickness Past Psychological History: Anxiety, Bipolar, Depression, Panic Disorder Smoking Status: Current every day smoker Past Alcohol Use History: None Reported Past Drug Use History: Marijuana - Past Family History Mother History Unknown: Yes Family Medical History: No Reported History Additional Family Medical History / Comment(s): MOM HAD THYROID CANCER General Exam Limitations: no limitations General appearance: alert, in no apparent distress, other (This is a well- developed, well-nourished adult female patient in no acute distress. Vital signs upon presentation are temperature 98.1F, pulse 81, respirations 20, blood pressure 129/78, pulse ox 99% on room air.) Eye exam: Present: normal appearance, PERRL, EOMI. Absent: scleral icterus, conjunctival injection, periorbital swelling ENT exam: Present: normal exam, normal oropharynx, mucous membranes moist Respiratory exam: Present: normal lung sounds bilaterally. Absent: respiratory distress, wheezes, rales, rhonchi, stridor Cardiovascular Exam: Present: regular rate, normal rhythm, normal heart sounds. Absent: systolic murmur, diastolic murmur, rubs, gallop, clicks GI/Abdominal exam: Present: soft, tenderness (Suprapubic), normal bowel sounds. Absent: distended, guarding, rebound, rigid Back exam: Present: normal inspection, CVA tenderness (R). Absent: CVA tenderness (L) Neurological exam: Present: alert, oriented X3, CN II-XII intact Psychiatric exam: Present: normal affect, normal mood Skin exam: Present: warm, dry, intact, normal color. Absent: rash Course Vital Signs 11/29/17 11/29/17 18:49 20:14 Temperature 98.1 F Pulse Rate 81 53 L Respiratory 20 18 Rate Blood Pressure 129/78 154/70 O2 Sat by Pulse 99 100 Oximetry Medical Decision Making - Medical Decision Making 27-year-old female patient presented to the emergency department today for evaluation of dysuria and urinary frequency. Physical examination did reveal some mild suprapubic tenderness and some mild right flank tenderness. Urinalysis was obtained and showed a turbid appearance with 1+ protein, moderate blood, positive nitrite, large leukocyte esterase, 36 red blood cells, greater than 182 white blood cells, 50 squamous epithelial cells, rare amorphous sediment, many bacteria, few mucus. HCG is negative. We'll treat patient for urinary tract infection. She is instructed to increase fluids. She is instructed to follow-up with her primary care physician for recheck in 1- 2 days. She is instructed to have repeat urinalysis performed once antibiotics are complete to ensure clearance of infection. Return parameters discussed in detail. She verbalizes understanding and agrees with this plan. - Lab Data Lab Results 11/29/17 11/29/17 Range/Units 20:05 20:05 Urine Color Yellow Urine Appearance Turbid H (Clear) Urine pH 7.0 (5.0-8.0) Ur Specific [place] 1.011 (1.001-1.035) Urine Protein 1+ H (Negative) Urine Glucose (UA) Negative (Negative) Urine Ketones Negative (Negative) Urine Blood Moderate H (Negative) Urine Nitrite Positive H (Negative) Urine Bilirubin Negative (Negative) Urine Urobilinogen <2.0 (<2.0) mg/dL Ur Leukocyte Esterase Large H (Negative) Urine RBC 36 H (0-5) /hpf Urine WBC >182 H (0-5) /hpf Ur Squamous Epith Cells 50 H (0-4) /hpf Amorphous Sediment Rare H (None) /hpf Urine Bacteria Many H (None) /hpf Urine Mucus Few H (None) /hpf Urine HCG, Qual Not Detected (Not Detectd) Disposition Clinical Impression: Urinary tract infection Disposition: HOME SELF-CARE Condition: Good Instructions: Urinary Tract Infection in Women (ED) Additional Instructions: Increase fluids. Complete and back prescription and full. Follow-up with her primary care physician for recheck in 1-2 days. Return here immediately for any new, worsening, or concerning symptoms. Prescriptions: Sulfamethoxazole/Trimethoprim [Bactrim DS 800-160 mg] 1 each PO BID #14 tablet Is patient prescribed a controlled substance at d/c from ED?: No Referrals: Dano Parra MD [Primary Care Provider] - 1-2 days Time of Disposition: 20:30
[2017-11-29 20:16] VITALS: BP 154/70; PULSE 53; RESP 18
[2017-11-29 20:21] LABS: Amorphous Sediment,Urine Rare /hpf; Appearance,Urine Turbid (Clear); Bacteria,Urine Many /hpf; Bilirubin,Urine Negative (Negative); Blood,Urine Moderate (Negative); Color,Urine Yellow; Glucose,Urine (UA) Negative (Negative); Ketones,Urine Negative (Negative); Leukocyte Esterase,Urine Large (Negative); Mucus,Urine Few /hpf; Nitrite,Urine Positive (Negative); Protein,Urine 1+ (Negative); RBC,Urine 36 /hpf (0-5); Specific Gravity,Urine 1.011 (1.001-1.035); Squamous Epithelial Cell,Urine 50 /hpf (0-4); Urobilinogen,Urine <2.0 mg/dL (<2.0); WBC,Urine >182 /hpf (0-5)
[2017-11-29] MEDS ORDERED: SULFAMETH-TMP DS STARTER PACK 2 TAB BTL PO STA (20:28)
== END 2017-11-29 21:08 | disposition home or self-care (01) ==
LOC: EC 18:38
DX: N39.0 Urinary tract infection, site not specified (principal); F41.0 Panic disorder [episodic paroxysmal anxiety]; F31.9 Bipolar disorder, unspecified; F17.200 Nicotine dependence, unspecified, uncomplicated; Z32.02 Encounter for pregnancy test, result negative; Z79.899 Other long term (current) drug therapy
CPT/HCPCS: 81001; 81025; 87086; 99283

== ENCOUNTER 2018-01-09 02:22 | Emergency (ER) | payer OTHER ==
[2018-01-09 02:31] VITALS: TEMP 98.7
[2018-01-09] MEDS ORDERED: LORazepam 1 MG TAB PO STA (02:49)
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
[2018-01-09 03:38] LABS: Amphetamine Screen,Urine Not Detected (NotDetected); Barbiturate Screen,Urine Not Detected (NotDetected); Benzodiazepines Screen,Urine Detected (NotDetected); Cocaine Screen,Urine Not Detected (NotDetected); Methadone Screen, Urine Not Detected (NotDetected); Opiate Screen,Urine Not Detected (NotDetected); Oxycodone Screen, Urine Not Detected (NotDetected); Phencyclidine Screen,Urine Not Detected (NotDetected); Tricyclic Antidepressant,Urine Not Detected (NotDetected); Urn Cannabinoid Scrn Detected (NotDetected)
[2018-01-09 05:28] VITALS: BP 130/77; PULSE 82; RESP 16
== END 2018-01-09 05:31 | disposition home or self-care (01) ==
LOC: EC 02:22
DX: F41.9 Anxiety disorder, unspecified (principal); F32.9 Major depressive disorder, single episode, unspecified; M19.90 Unspecified osteoarthritis, unspecified site; M54.30 Sciatica, unspecified side; M46.90 Unspecified inflammatory spondylopathy, site unspecified; F17.200 Nicotine dependence, unspecified, uncomplicated; Z79.899 Other long term (current) drug therapy
CPT/HCPCS: 80306; 99284

== ENCOUNTER → 2019-05-23 | Outpatient (CLI) | payer OTHER ==
--- NOTE | 2019-05-23 13:19 | XR ---
Dressing spine HISTORY: Back pain Frontal and lateral views of the thoracic spine submitted, 3 images There is a gentle spinal curvature. Thoracic vertebral bodies show preserved height and bone minerali zation. There is multilevel spondylosis. Disc spaces maintained. No paraspinal mass. IMPRESSION: Thoracic spondylosis
--- NOTE | 2019-05-23 14:40 | XR ---
Lumbosacral spine HISTORY: Back pain 5 views of the lumbosacral spine, correlation prior exam 09/13/2016 There is a slight levoscoliosis at the mid lumbar spine. Lumbar vertebral bodies show preserved heigh t and bone mineralization. There is no evident spondylolysis. Loss of disc height is present at L5-S1 with associated vacuum phenomenon at the intervertebral disc, there is associated spondylosis. Scler osis in the posterior elements likely due to facet arthropathy. IMPRESSION: Degenerative disc disease and facet arthropathy.
--- NOTE | 2019-05-23 14:44 | XR ---
Cervical spine HISTORY: Neck pain 5 views of the cervical spine No comparisons Rudimentary cervical ribs present at C7. There is spondylosis present at C6-7 and C5-6 with associate d loss of disc height present at C6-7. No evident foraminal encroachment. Loss of normal lordosis cou ld be due to muscle spasm or patient positioning. C7-T1 not well seen. Prevertebral soft tissues are normal. Tooth decay noted posteriorly with possible periapical abscess left maxilla and mandible. IMPRESSION: Degenerative disc disease. Tooth decay.
== END | disposition home or self-care (01) ==
LOC: RADXRMAIN 11:57
PROVIDERS: ATTEND Family Medicine
DX: M50.30 Other cervical disc degeneration, unspecified cervical region (principal); M51.37 Other intervertebral disc degeneration, lumbosacral region; M47.814 Spondylosis without myelopathy or radiculopathy, thoracic region; M46.97 Unspecified inflammatory spondylopathy, lumbosacral region
CPT/HCPCS: 72050; 72070; 72110

== ENCOUNTER 2019-05-30 16:09 | Emergency (ER) | payer OTHER ==
[2019-05-30] MEDS ORDERED: cefTRIAXone 250 MG VIAL IM STA (16:39)
[2019-05-30] MEDS ORDERED: AZITHROMYCIN 500 MG TAB PO STA (16:39)
--- NOTE | 2019-05-30 16:39 | ED ---
Female Urogenital HPI - General Chief complaint: Urogenital Stated complaint: Infection Time Seen by Provider: 05/30/19 16:21 Source: patient Mode of arrival: ambulatory Limitations: no limitations - History of Present Illness Initial comments: 29-year-old female presenting today for chief complaint of pain in the vagina. Patient's sutures pain in the vagina and has painful lesions that hurt more when there is urine that has tripped over the area. Patient states she does have vaginal discharge. Patient denies vaginal odor. Patient states that the lesions are painful and she has sex. Patient denies any pelvic pain back pain denies any nausea vomiting, admit to diarrhea. Denies neck pain,stiffness, eye redness, fevers or headaches. Patient denies rash. Patient denies new sexual partners but is sexually active. LMP 2 weeks ago, no history of STI. Denies but is not using contraceptives. Patient has no other complaints. Upon arrival patient appears nontoxic, no acute distress. Afebrile. Last Menstrual Period: 05/16/19 - Related Data Home Medications Medication Instructions Recorded Confirmed DULoxetine HCL [Cymbalta] 30 mg PO BID 06/10/17 11/29/17 Gabapentin [Neurontin] 300 mg PO BID 06/10/17 11/29/17 Primidone [Mysoline] 50 mg PO DAILY 06/10/17 11/29/17 Previous Rx's Medication Instructions Recorded Sulfamethoxazole/Trimethoprim 1 each PO BID #14 tablet 11/29/17 [Bactrim DS 800-160 mg] Ibuprofen [Motrin] 600 mg PO Q8HR PRN #20 tab 02/15/18 Penicillin V Potassium [Pen Vee K] 500 mg PO Q6H 10 Days tablet 02/15/18 Acyclovir 400 mg PO TID 7 Days #21 tablet 05/30/19 Doxycycline [Vibramycin] 100 mg PO BID 14 Days #28 capsule 05/30/19 Allergies Allergy/AdvReac Type Severity Reaction Status Date / Time No Known Allergies Allergy Verified 05/30/19 16:16 Review of Systems ROS Statement: Those systems with pertinent positive or pertinent negative responses have been documented in the HPI. ROS Other: All systems not noted in ROS Statement are negative. Past Medical History Additional Past Medical History / Comment(s): 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, herniated disks, sciatica. WAS DX YEARS AGO WITH BENIGN TREMORS IN HANDS. lumbar epidural History of Any Multi-Drug Resistant Organisms: None Reported Past Surgical History: Orthopedic Surgery Additional Past Surgical History / Comment(s): 2 left foot surgeries(ORIF), HAVING FIRST PAIN PROCEDURE TODAY, orthopedic surgery left foot Past Anesthesia/Blood Transfusion Reactions: No Reported Reaction, Motion Sickness Past Psychological History: Anxiety, Bipolar, Depression, Panic Disorder Smoking Status: Current every day smoker Past Alcohol Use History: None Reported Past Drug Use History: Marijuana - Past Family History Mother History Unknown: Yes Family Medical History: No Reported History Additional Family Medical History / Comment(s): MOM HAD THYROID CANCER General Exam - General Exam Comments Initial Comments: General: The patient is awake and alert, in no distress, and does not appear acutely ill. Eye: Pupils are equal, round and reactive to light, extra-ocular movements are intact. No nystagmus. There is normal conjunctiva bilaterally. No signs of icterus. Ears, nose, mouth and throat: There are moist mucous membranes and no oral lesions. Cardiovascular: There is a regular rate and rhythm. No murmur, rub or gallop is appreciated. Respiratory: Lungs are clear to auscultation, respirations are non-labored, breath sounds are equal. No wheezes, stridor, rales, or rhonchi. Gastrointestinal: Soft, non-distended, non-tender abdomen/pelvic region to deep palpation, abdomen is without masses or organomegaly noted. There is no rebound or guarding present. Pelvic: External ulceration, small round, painful, some vesicular lesions, erythematous, yellow discharge in vault, no adnexal tenderness. Musculoskeletal: Normal ROM, no tenderness. Strength 5/5. Sensation intact. Radial pulses equal bilaterally 2+. Neurological: A&O x 3. CN II-XII intact grossly, There are no obvious motor or sensory deficits. Coordination appears grossly intact. Speech is normal. Skin: Skin is warm and dry and no rashes on hands or feet. Psychiatric: Cooperative, appropriate mood & affect, normal judgment. Limitations: no limitations Course Vital Signs 05/30/19 05/30/19 16:13 18:03 Temperature 98 F 98.0 F Pulse Rate 86 76 Respiratory 16 20 Rate Blood Pressure 141/78 136/87 O2 Sat by Pulse 99 98 Oximetry Medical Decision Making - Medical Decision Making 29 presents today for vaginal pain. Patients clinical findings are suggestive of herpes simplex. Patient also has profuse vaginal discharge no adnexal or abdominal/pelvic tenderness. No fevers reported. Afebrile emergency department. Patient does appear nontoxic. At this time we'll treat the cycle here, as well as PID given the amount of discharge Trichomonas negative. Patient was given Rocephin and azithromycin the emergency department. I did discuss a sex practices and the importance of [employer] follow-up for Pap smear and further follow-up return parameters were discussed at length the patient was discharged appearing well after discussing case with Dr. Diaz - Lab Data Lab Results 05/30/19 05/30/19 05/30/19 Range/Units 16:36 17:05 17:05 Urine Color Yellow Urine Appearance Turbid H (Clear) Urine pH 5.5 (5.0-8.0) Ur Specific [place] 1.032 (1.001-1.035) Urine Protein 1+ H (Negative) Urine Glucose (UA) Negative (Negative) Urine Ketones Trace H (Negative) Urine Blood Small H (Negative) Urine Nitrite Negative (Negative) Urine Bilirubin Negative (Negative) Urine Urobilinogen 3.0 (<2.0) mg/dL Ur Leukocyte Esterase Large H (Negative) Urine RBC 10 H (0-5) /hpf Urine WBC 115 H (0-5) /hpf Urine WBC Clumps Moderate H (None) /hpf Ur Squamous Epith Cells 27 H (0-4) /hpf Urine Bacteria Rare H (None) /hpf Urine Mucus Many H (None) /hpf Urine HCG, Qual Detected (Not Detectd) Trichomonas Ag (Rapid) Negative (Negative) Disposition Clinical Impression: Herpes simplex, Vaginal discharge, Genital herpes Disposition: HOME SELF-CARE Condition: Good Instructions (If sedation given, give patient instructions): Pelvic Inflammatory Disease (ED), Genital Herpes Simplex (ED) Additional Instructions: Please use medication as discussed. Please follow-up with OBGYN in next week, recommend PAP smear, follow-up with pending testing. Return for fevers, pelvic pain, headache, rash, neck stiffness, or worsening symptoms. Please return to emergency room if the symptoms increase or worsen or for any other concerns. Prescriptions: Acyclovir 400 mg PO TID 7 Days #21 tablet Doxycycline [Vibramycin] 100 mg PO BID 14 Days #28 capsule Is patient prescribed a controlled substance at d/c from ED?: No Referrals: Dano Parra MD [Primary Care Provider] - 1-2 days Time of Disposition: 17:52
[2019-05-30 17:40] LABS: Appearance,Urine Turbid (Clear); Bacteria,Urine Rare /hpf; Bilirubin,Urine Negative (Negative); Blood,Urine Small (Negative); Color,Urine Yellow; Glucose,Urine (UA) Negative (Negative); Ketones,Urine Trace (Negative); Leukocyte Esterase,Urine Large (Negative); Mucus,Urine Many /hpf; Nitrite,Urine Negative (Negative); PH, Urine 5.5 (5.0-8.0); Protein,Urine 1+ (Negative); RBC,Urine 10 /hpf (0-5); Specific Gravity,Urine 1.032 (1.001-1.035); Squamous Epithelial Cell,Urine 27 /hpf (0-4); WBC,Urine 115 /hpf (0-5)
[2019-05-30 18:05] VITALS: BP 136/87; PULSE 76; RESP 20; TEMP 98
== END 2019-05-30 18:03 | disposition home or self-care (01) ==
LOC: EC 16:09
DX: A60.00 Herpesviral infection of urogenital system, unspecified (principal); N73.9 Female pelvic inflammatory disease, unspecified; R19.7 Diarrhea, unspecified; M89.49 Other hypertrophic osteoarthropathy, multiple sites; F31.9 Bipolar disorder, unspecified; F41.9 Anxiety disorder, unspecified; F17.200 Nicotine dependence, unspecified, uncomplicated; Z79.899 Other long term (current) drug therapy; Z96.698 Presence of other orthopedic joint implants
CPT/HCPCS: 81001; 81025; 87808; 87491; 87591; 87070; 87086; 99283; 96372; J0696

== ENCOUNTER 2019-06-12 13:14 | Emergency (ER) | payer OTHER ==
[2019-06-12 13:18] VITALS: BP 130/81; PULSE 93; RESP 20; TEMP 97.8
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
[2019-06-12] MEDS ORDERED: ACET/COD 300 MG/30 MG STARTER PACK 6 TAB BTL PO STA (15:07)
== END 2019-06-12 15:19 | disposition home or self-care (01) ==
LOC: EC 13:14
DX: S93.402A Sprain of unspecified ligament of left ankle, initial encounter (principal); S92.342K Displaced fracture of fourth metatarsal bone, left foot, subsequent encounter for fracture with nonunion; M47.9 Spondylosis, unspecified; M13.89 Other specified arthritis, multiple sites; F31.9 Bipolar disorder, unspecified; F41.0 Panic disorder [episodic paroxysmal anxiety]; F17.200 Nicotine dependence, unspecified, uncomplicated; Z79.899 Other long term (current) drug therapy; Z96.698 Presence of other orthopedic joint implants; X50.9XXA Other and unspecified overexertion or strenuous movements or postures, initial encounter; X58.XXXD Exposure to other specified factors, subsequent encounter; Y93.39 Activity, other involving climbing, rappelling and jumping off
CPT/HCPCS: 29515; 99284

== ENCOUNTER 2019-11-30 10:55 | Emergency (ER) | payer OTHER ==
--- NOTE | 2019-11-30 11:18 | ED ---
Psych HPI - General Chief Complaint: Psychiatric Symptoms Stated Complaint: Mental Health Time Seen by Provider: 11/30/19 10:58 Source: patient, police, RN notes reviewed Limitations: no limitations - History of Present Illness Initial Comments: 29-year-old female presents emergency Department with police for psychiatric evaluation. Patient has very bizarre behavior has had some issues with drug abuse and addiction. Patient also reportedly has not been living in healthy Condition states she is unable to cook food or take care of herself. Patient record police with concerns. Patient denies any physical complaints. Patient does have a long extensive history of psychiatric disorders. Patient denies being homicidal or suicidal. - Related Data Home Medications Medication Instructions Recorded Confirmed DULoxetine HCL [Cymbalta] 30 mg PO BID 06/10/17 11/29/17 Gabapentin [Neurontin] 300 mg PO BID 06/10/17 11/29/17 Primidone [Mysoline] 50 mg PO DAILY 06/10/17 11/29/17 Previous Rx's Medication Instructions Recorded Sulfamethoxazole/Trimethoprim 1 each PO BID #14 tablet 11/29/17 [Bactrim DS 800-160 mg] Ibuprofen [Motrin] 600 mg PO Q8HR PRN #20 tab 02/15/18 Penicillin V Potassium [Pen Vee K] 500 mg PO Q6H 10 Days tablet 02/15/18 Acyclovir 400 mg PO TID 7 Days #21 tablet 05/30/19 Doxycycline [Vibramycin] 100 mg PO BID 14 Days #28 capsule 05/30/19 Ibuprofen [Motrin] 600 mg PO Q8HR PRN #20 tab 06/12/19 Allergies Allergy/AdvReac Type Severity Reaction Status Date / Time No Known Allergies Allergy Verified 06/12/19 13:18 Review of Systems ROS Statement: Those systems with pertinent positive or pertinent negative responses have been documented in the HPI. ROS Other: All systems not noted in ROS Statement are negative. Past Medical History Additional Past Medical History / Comment(s): 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, herniated disks, sciatica. WAS DX YEARS AGO WITH BENIGN TREMORS IN HANDS. lumbar epidural History of Any Multi-Drug Resistant Organisms: None Reported Past Surgical History: Orthopedic Surgery Additional Past Surgical History / Comment(s): 2 left foot surgeries(ORIF), HAVING FIRST PAIN PROCEDURE TODAY, orthopedic surgery left foot Past Anesthesia/Blood Transfusion Reactions: No Reported Reaction, Motion Sic kness Past Psychological History: Anxiety, Bipolar, Depression, Panic Disorder Smoking Status: Current some day smoker Past Alcohol Use History: None Reported Past Drug Use History: Marijuana - Past Family History Mother History Unknown: Yes Family Medical History: No Reported History Additional Family Medical History / Comment(s): MOM HAD THYROID CANCER General Exam Limitations: no limitations General appearance: alert, in no apparent distress Head exam: Present: atraumatic, normocephalic, normal inspection Eye exam: Present: normal appearance, PERRL, EOMI. Absent: scleral icterus, conjunctival injection, periorbital swelling ENT exam: Present: normal exam, normal oropharynx, mucous membranes moist, TM's normal bilaterally Neck exam: Present: normal inspection, full ROM. Absent: tenderness, meningismus, lymphadenopathy Respiratory exam: Present: normal lung sounds bilaterally. Absent: respiratory distress, wheezes, rales, rhonchi, stridor Cardiovascular Exam: Present: regular rate, normal rhythm, normal heart sounds. Absent: systolic murmur, diastolic murmur, rubs, gallop, clicks Neurological exam: Present: alert, oriented X3, CN II-XII intact, reflexes normal. Absent: motor sensory deficit Psychiatric exam: Present: flat affect Skin exam: Present: warm, dry, intact, normal color. Absent: rash Course Vital Signs 11/30/19 11:10 Temperature 98.1 F Pulse Rate 70 Respiratory 16 Rate Blood Pressure 133/97 O2 Sat by Pulse 99 Oximetry Medical Decision Making - Medical Decision Making Patient evaluated by EPS patient is discharged with safety plan case discussed with psychiatrist and [facility]. Patient was given information for crisis bed. Disposition Clinical Impression: Acute anxiety, Psychosis Disposition: HOME SELF-CARE Condition: Stable Instructions (If sedation given, give patient instructions): Generalized Anxiety Disorder (ED) Additional Instructions: Please return to the Emergency Department if symptoms worsen or any other concerns. Is patient prescribed a controlled substance at d/c from ED?: No Referrals: Nonstaff,Physician [REFERRING] - 1-2 days Time of Disposition: 12:33
[2019-11-30 13:12] VITALS: BP 121/68; PULSE 69; RESP 18; TEMP 97.7
== END 2019-11-30 13:38 | disposition home or self-care (01) ==
LOC: EC 10:55
DX: F41.9 Anxiety disorder, unspecified (principal); F29 Unspecified psychosis not due to a substance or known physiological condition; F31.9 Bipolar disorder, unspecified; Z79.899 Other long term (current) drug therapy
CPT/HCPCS: 82075; 99284

== ENCOUNTER 2019-12-03 13:10 | Emergency (ER) | payer OTHER ==
--- NOTE | 2019-12-03 13:48 | ED ---
General Adult HPI - General Chief complaint: Psychiatric Symptoms Stated complaint: Mental Health Time Seen by Provider: 12/03/19 13:10 Source: patient, RN notes reviewed, old records reviewed Mode of arrival: ambulatory Limitations: no limitations - History of Present Illness Initial comments: This is a 29-year-old female who presents emergency Department complaining of wanting to kill herself. When treating her right that she wanted to throw herself in front of a car today. Patient states she did not make an attempt to do so. Patient states she did not take any excessive medications. Patient denies any drug use. Patient denies any alcohol use. Patient denies any physical complaints today. Patient denies any persistent numbness weakness. Patient denies lightheadedness or dizziness. Patient denies chest pain palpitations difficulty breathing or shortness of breath. Patient denies any recent fever chills or cough - Related Data Home Medications Medication Instructions Recorded Confirmed DULoxetine HCL [Cymbalta] 60 mg PO BID 12/03/19 12/03/19 Primidone [Mysoline] 250 mg PO BID 12/03/19 12/03/19 QUEtiapine FUMARATE [QUEtiapine 150 mg PO HS 12/03/19 12/03/19 FUMARATE ER] busPIRone HCL 15 mg PO BID 12/03/19 12/03/19 Allergies Allergy/AdvReac Type Severity Reaction Status Date / Time No Known Allergies Allergy Verified 12/03/19 17:09 Review of Systems ROS Statement: Those systems with pertinent positive or pertinent negative responses have been documented in the HPI. ROS Other: All systems not noted in ROS Statement are negative. Past Medical History Additional Past Medical History / Comment(s): 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, hernia samantha disks, sciatica. WAS DX YEARS AGO WITH BENIGN TREMORS IN HANDS. lumbar epidural History of Any Multi-Drug Resistant Organisms: None Reported Past Surgical History: Orthopedic Surgery Additional Past Surgical History / Comment(s): 2 left foot surgeries(ORIF), HAVING FIRST PAIN PROCEDURE TODAY, orthopedic surgery left foot Past Anesthesia/Blood Transfusion Reactions: No Reported Reaction, Motion Sickness Past Psychological History: Anxiety, Bipolar, Depression, Panic Disorder Smoking Status: Current some day smoker Past Alcohol Use History: None Reported Past Drug Use History: Marijuana - Past Family History Mother History Unknown: Yes Family Medical History: No Reported History Additional Family Medical History / Comment(s): MOM HAD THYROID CANCER General Exam - General Exam Comments Initial Comments: GENERAL: Patient is well-developed and well-nourished. Patient is nontoxic and well- hydrated and is in no acute distress. ENT: Neck is soft and supple. No significant lymphadenopathy is noted. Oropharynx is clear. Moist mucous membranes. Neck has full range of motion without eliciting any pain. EYES: The sclera were anicteric and conjunctiva were pink and moist. Extraocular movements were intact and pupils were equal round and reactive to light. Eyelids were unremarkable. PULMONARY: Unlabored respirations. Good breath sounds bilaterally. No audible rales rhonchi or wheezing was noted. CARDIOVASCULAR: There is a regular rate and rhythm without any murmurs gallops or rubs. ABDOMEN: Soft and nontender with normal bowel sounds. SKIN: Skin is clear with no lesions or rashes and otherwise unremarkable. NEUROLOGIC: Patient is alert and oriented x3. Cranial nerves II through XII are grossly intact. Motor and sensory are also intact. Normal speech, volume and content. Symmetrical smile. MUSCULOSKELETAL: Normal extremities with adequate strength and full range of motion. No lower extremity swelling or edema. No calf tenderness. LYMPHATICS: No significant lymphadenopathy is noted PSYCHIATRIC: Patient states she is suicidal and wants to throw herself in front of her car. Limitations: no limitations Course Vital Signs 12/03/19 12/03/19 12/03/19 13:20 14:25 15:00 Temperature 98.1 F Pulse Rate 75 Respiratory 16 18 18 Rate Blood Pressure 137/94 O2 Sat by Pulse 98 Oximetry 12/03/19 12/03/19 12/03/19 16:00 17:00 18:00 Temperature 97.9 F Pulse Rate 62 Respiratory 18 18 18 Rate Blood Pressure 135/76 O2 Sat by Pulse 99 Oximetry 12/03/19 12/04/19 12/04/19 22:05 07:25 11:08 Temperature 98.1 F 97.8 F Pulse Rate 70 64 Respiratory 18 18 18 Rate Blood Pressure 137/80 129/75 O2 Sat by Pulse 99 96 Oximetry Medical Decision Making - Medical Decision Making Dr. Priest of the taking over the care of this patient at 3 PM I filled out a clinical certification for the patient. Patient will be transferred out of the facility to another psychiatric facility - Lab Data Result diagrams: 12/03/19 21:19 12/03/19 21:19 Lab Results 12/03/19 12/03/19 12/03/19 Range/Units 13:52 13:52 13:52 WBC (3.8-10.6) k/uL RBC (3.80-5.40) m/uL Hgb (11.4-16.0) gm/dL Hct (34.0-46.0) % MCV (80.0-100.0) fL MCH (25.0-35.0) pg MCHC (31.0-37.0) g/dL RDW (11.5-15.5) % Plt Count (150-450) k/uL Sodium (137-145) mmol/L Potassium (3.5-5.1) mmol/L Chloride (98-107) mmol/L Carbon Dioxide (22-30) mmol/L Anion Gap mmol/L BUN (7-17) mg/dL Creatinine (0.52-1.04) mg/dL Est GFR (CKD-EPI)AfAm (>60 ml/min/1.73 sqM) Est GFR (CKD-EPI)NonAf (>60 ml/min/1.73 sqM) Glucose (74-99) mg/dL Calcium (8.4-10.2) mg/dL Urine Color Yellow Urine Appearance Cloudy H (Clear) Urine pH 6.5 (5.0-8.0) Ur Specific [place] 1.010 (1.001-1.035) Urine Protein Negative (Negative) Urine Glucose (UA) Negative (Negative) Urine Ketones Negative (Negative) Urine Blood Negative (Negative) Urine Nitrite Negative (Negative) Urine Bilirubin Negative (Negative) Urine Urobilinogen <2.0 (<2.0) mg/dL Ur Leukocyte Esterase Moderate H (Negative) Urine RBC 1 (0-5) /hpf Urine WBC 4 (0-5) /hpf Ur Squamous Epith Cells 6 H (0-4) /hpf Urine Bacteria Moderate H (None) /hpf Hyaline Casts 1 (0-2) /lpf Urine Mucus Occasional H (None) /hpf Urine HCG, Qual Not Detected (Not Detectd) Urine Opiates Screen Not Detected (NotDetected) Ur Oxycodone Screen Not Detected (NotDetected) Urine Methadone Screen Not Detected (NotDetected) Ur Propoxyphene Screen Not Detected (NotDetected) Ur Barbiturates Screen Detected H (NotDetected) U Tricyclic Antidepress Detected H (NotDetected) Ur Phencyclidine Scrn Not Detected (NotDetected) Ur Amphetamines Screen Not Detected (NotDetected) U Methamphetamines Scrn Not Detected (NotDetected) U Benzodiazepines Scrn Not Detected (NotDetected) Urine Cocaine Screen Not Detected (NotDetected) U Marijuana (THC) Screen Detected H (NotDetected) 12/03/19 12/03/19 Range/Units 21:19 21:19 WBC 7.7 (3.8-10.6) k/uL RBC 4.95 (3.80-5.40) m/uL Hgb 14.8 (11.4-16.0) gm/dL Hct 43.3 (34.0-46.0) % MCV 87.6 (80.0-100.0) fL MCH 29.9 (25.0-35.0) pg MCHC 34.2 (31.0-37.0) g/dL RDW 12.2 (11.5-15.5) % Plt Count 386 (150-450) k/uL Sodium 137 (137-145) mmol/L Potassium 3.8 (3.5-5.1) mmol/L Chloride 102 (98-107) mmol/L Carbon Dioxide 28 (22-30) mmol/L Anion Gap 7 mmol/L BUN 12 (7-17) mg/dL Creatinine 0.71 (0.52-1.04) mg/dL Est GFR (CKD-EPI)AfAm >90 (>60 ml/min/1.73 sqM) Est GFR (CKD-EPI)NonAf >90 (>60 ml/min/1.73 sqM) Glucose 112 H (74-99) mg/dL Calcium 9.1 (8.4-10.2) mg/dL Urine Color Urine Appearance (Clear) Urine pH (5.0-8.0) Ur Specific [place] (1.001-1.035) Urine Protein (Negative) Urine Glucose (UA) (Negative) Urine Ketones (Negative) Urine Blood (Negative) Urine Nitrite (Negative) Urine Bilirubin (Negative) Urine Urobilinogen (<2.0) mg/dL Ur Leukocyte Esterase (Negative) Urine RBC (0-5) /hpf Urine WBC (0-5) /hpf Ur Squamous Epith Cells (0-4) /hpf Urine Bacteria (None) /hpf Hyaline Casts (0-2) /lpf Urine Mucus (None) /hpf Urine HCG, Qual (Not Detectd) Urine Opiates Screen (NotDetected) Ur Oxycodone Screen (NotDetected) Urine Methadone Screen (NotDetected) Ur Propoxyphene Screen (NotDetected) Ur Barbiturates Screen (NotDetected) U Tricyclic Antidepress (NotDetected) Ur Phencyclidine Scrn (NotDetected) Ur Amphetamines Screen (NotDetected) U Methamphetamines Scrn (NotDetected) U Benzodiazepines Scrn (NotDetected) Urine Cocaine Screen (NotDetected) U Marijuana (THC) Screen (NotDetected) Disposition Clinical Impression: Depression, Suicidal ideation Disposition: TRANSFER TO PSYCH HOSP/UNIT Referrals: Dano Parra MD [Primary Care Provider] - 1-2 days Time of Disposition: 12:43
[2019-12-03 14:35] LABS: Amphetamine Screen,Urine Not Detected (NotDetected); Barbiturate Screen,Urine Detected (NotDetected); Benzodiazepines Screen,Urine Not Detected (NotDetected); Cocaine Screen,Urine Not Detected (NotDetected); Methadone Screen, Urine Not Detected (NotDetected); Opiate Screen,Urine Not Detected (NotDetected); Oxycodone Screen, Urine Not Detected (NotDetected); Phencyclidine Screen,Urine Not Detected (NotDetected); Tricyclic Antidepressant,Urine Detected (NotDetected); Urn Cannabinoid Scrn Detected (NotDetected)
[2019-12-03 15:02] VITALS: RESP 18
[2019-12-03] MEDS ORDERED: NICOTINE 14MG/24HR PATCH TRANSDERM STA (16:48)
[2019-12-03 21:27] LABS: Appearance,Urine Cloudy (Clear); Bacteria,Urine Moderate /hpf; Bilirubin,Urine Negative (Negative); Blood,Urine Negative (Negative); Color,Urine Yellow; Glucose,Urine (UA) Negative (Negative); Hyaline Casts,Urine 1 /lpf (0-2); Ketones,Urine Negative (Negative); Leukocyte Esterase,Urine Moderate (Negative); Mucus,Urine Occasional /hpf; Nitrite,Urine Negative (Negative); PH, Urine 6.5 (5.0-8.0); Protein,Urine Negative (Negative); RBC,Urine 1 /hpf (0-5); Squamous Epithelial Cell,Urine 6 /hpf (0-4); Urobilinogen,Urine <2.0 mg/dL (<2.0); WBC,Urine 4 /hpf (0-5)
[2019-12-03] MEDS ORDERED: QUEtiapine 50 MG TAB PO STA (21:28)
[2019-12-03 21:33] LABS: HCT 43.3 % (34.0-46.0); HGB 14.8 gm/dL (11.4-16.0); MCH 29.9 pg (25.0-35.0); MCHC 34.2 g/dL (31.0-37.0); MCV 87.6 fL (80.0-100.0); Mean Platelet Volume 7.1; Platelet Count 386 k/uL (150-450); RBC 4.95 m/uL (3.80-5.40); RDW 12.2 % (11.5-15.5); WBC 7.7 k/uL (3.8-10.6)
[2019-12-03 21:43] LABS: African American GFR (CKD) >90 (>60 ml/min/1.73 sqM); Anion Gap 7 mmol/L; Blood Urea Nitrogen 12 mg/dL (7-17); Calcium 9.1 mg/dL (8.4-10.2); Carbon Dioxide 28 mmol/L (22-30); Chloride 102 mmol/L (98-107); Glucose 112 mg/dL (74-99); Non-African American GFR(CKD) >90 (>60 ml/min/1.73 sqM); Potassium 3.8 mmol/L (3.5-5.1); Sodium 137 mmol/L (137-145)
[2019-12-03] MEDS ORDERED: IBUPROFEN 600 MG TAB PO STA (23:59)
[2019-12-04 07:26] VITALS: BP 129/75; PULSE 64; TEMP 97.8
[2019-12-04] MEDS ORDERED: IBUPROFEN 600 MG TAB PO STA (07:41)
[2019-12-04] MEDS ORDERED: LORazepam 1 MG TAB PO STA (14:01)
== END 2019-12-04 14:15 ==
LOC: EC 13:10
DX: F32.9 Major depressive disorder, single episode, unspecified (principal); R45.851 Suicidal ideations; F41.0 Panic disorder [episodic paroxysmal anxiety]; F17.200 Nicotine dependence, unspecified, uncomplicated; Z79.899 Other long term (current) drug therapy
CPT/HCPCS: 82075; 36415; 80048; 85027; 81001; 81025; 80306; 99285; S4990

== ENCOUNTER 2020-04-16 17:43 | Emergency (ER) | payer OTHER ==
[2020-04-16 18:14] VITALS: TEMP 98
--- NOTE | 2020-04-16 19:24 | ED ---
General Adult HPI - General Chief complaint: Recheck/Abnormal Lab/Rx Stated complaint: Mental/Med Review Time Seen by Provider: 04/16/20 18:41 Source: patient, RN notes reviewed Mode of arrival: ambulatory Limitations: no limitations - History of Present Illness Initial comments: 30-year-old female presents to the emergency room for a chief complaint of med refill. Patient states she recently moved from [facility] and is trying to get into [facility]. States that she has an appointment on Monday however this is not with the psychiatrist. Patient reports that she needs Trileptal, Seroquel, primidone, and duloxetine. Patient has no other complaints at this time including shortness of breath, chest pain, abdominal pain, nausea or vomiting, headache, or visual changes. - Related Data Home Medications Medication Instructions Recorded Confirmed DULoxetine HCL [Cymbalta] 60 mg PO BID 12/03/19 12/03/19 Primidone [Mysoline] 250 mg PO BID 12/03/19 12/03/19 QUEtiapine FUMARATE [QUEtiapine 150 mg PO HS 12/03/19 12/03/19 FUMARATE ER] busPIRone HCL 15 mg PO BID 12/03/19 12/03/19 Previous Rx's Medication Instructions Recorded DULoxetine HCL [Cymbalta] 20 mg PO DAILY #3 capsule. 04/16/20 Primidone [Mysoline] 250 mg PO BID #6 tablet 04/16/20 QUEtiapine FUMARATE [QUEtiapine 400 mg PO HS #3 tab.er.24h 04/16/20 FUMARATE ER] Allergies Allergy/AdvReac Type Severity Reaction Status Date / Time No Known Allergies Allergy Verified 04/16/20 18:10 Review of Systems ROS Statement: Those systems with pertinent positive or pertinent negative responses have been documented in the HPI. ROS Other: All systems not noted in ROS Statement are negative. Past Medical History Additional Past Medical History / Comment(s): 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, herniated disks, sciatica. WAS DX YEARS AGO WITH BENIGN TREMORS IN HANDS. lumbar epidural History of Any Multi-Drug Resistant Organisms: None Reported Past Surgical History: Orthopedic Surgery Additional Past Surgical History / Comment(s): 2 left foot surgeries(ORIF), HAVING FIRST PAIN PROCEDURE TODAY, orthopedic surgery left foot Past Anesthesia/Blood Transfusion Reactions: No Reported Reaction, Motion Sickness Past Psychological History: Anxiety, Bipolar, Depression, Panic Disorder Smoking Status: Current some day smoker Past Alcohol Use History: None Reported Past Drug Use History: Marijuana - Past Family History Mother History Unknown: Yes Family Medical History: No Reported History Additional Family Medical History / Comment(s): MOM HAD THYROID CANCER General Exam Limitations: no limitations General appearance: alert, in no apparent distress Head exam: Present: atraumatic Eye exam: Present: normal appearance, PERRL, EOMI. Absent: scleral icterus, conjunctival injection ENT exam: Present: normal exam, mucous membranes moist Neck exam: Present: normal inspection, full ROM. Absent: tenderness, meningismus, lymphadenopathy Respiratory exam: Present: normal lung sounds bilaterally. Absent: respiratory distress, wheezes, rales, rhonchi, stridor Cardiovascular Exam: Present: regular rate, normal rhythm, normal heart sounds. Absent: systolic murmur, diastolic murmur, rubs, gallop, clicks GI/Abdominal exam: Present: soft, normal bowel sounds. Absent: distended, tenderness, guarding, rebound, rigid Course Vital Signs 04/16/20 18:10 Temperature 98 F Pulse Rate 65 Respiratory 18 Rate Blood Pressure 128/84 O2 Sat by Pulse 97 Oximetry Medical Decision Making - Medical Decision Making I did have the [employer] pull-up her prescription records. Patient is in fact out of her primidone duloxetine and Seroquel and will be given a three- day supply through the emergency department. However patient is 6 days early on her Trileptal refill. Therefore I discussed that I will not be able to give her any of this today. She will need to follow-up with her doctor who is in [place] or talk to [facility] about this. Disposition Clinical Impression: Encounter for medication refill Disposition: HOME SELF-CARE Condition: Good Instructions (If sedation given, give patient instructions): Medicine Refill (ED) Additional Instructions: Please follow-up with your doctor for further medication refills. Prescriptions: DULoxetine HCL [Cymbalta] 20 mg PO DAILY #3 capsule. Primidone [Mysoline] 250 mg PO BID #6 tablet QUEtiapine FUMARATE [QUEtiapine FUMARATE ER] 400 mg PO HS #3 tab.er.24h Is patient prescribed a controlled substance at d/c from ED?: No Referrals: Kimberly Valles MD [REFERRING] - 1-2 days Time of Disposition: 19:21
[2020-04-16 19:30] VITALS: BP 139/85; PULSE 78; RESP 20
== END 2020-04-16 19:30 | disposition home or self-care (01) ==
LOC: EC 17:43
DX: Z76.0 Encounter for issue of repeat prescription (principal); F31.9 Bipolar disorder, unspecified; F41.9 Anxiety disorder, unspecified; F17.200 Nicotine dependence, unspecified, uncomplicated; Z79.899 Other long term (current) drug therapy
CPT/HCPCS: 99281

== ENCOUNTER 2020-04-18 17:46 | Emergency (ER) | payer OTHER ==
[2020-04-18 17:53] VITALS: BP 144/85; PULSE 80; RESP 16; TEMP 97.8
--- NOTE | 2020-04-18 18:29 | ED ---
Psych HPI - General Chief Complaint: Psychiatric Symptoms Stated Complaint: EPS eval Time Seen by Provider: 04/18/20 17:57 Source: patient Mode of arrival: ambulatory - History of Present Illness Initial Comments: Patient is a 30-year-old female presenting to the emergency department requesting a psychiatric evaluation. Patient was seen in the ER 2 days ago for med refill but was only able to get a few days worth, she states she will be out soon and is starting to have a lot of anxiety regarding this and states she also has suicidal ideations. She states she is trying to think of a plan. She denies any homicidal thoughts. She denies being . She denies any alcohol or drug use today. She denies any chest pain, shortness of breath, abdominal pain, no nausea or vomiting. She has no further complaints at this time. - Related Data Home Medications Medication Instructions Recorded Confirmed DULoxetine HCL [Cymbalta] 60 mg PO BID 12/03/19 12/03/19 Primidone [Mysoline] 250 mg PO BID 12/03/19 12/03/19 QUEtiapine FUMARATE [QUEtiapine 150 mg PO HS 12/03/19 12/03/19 FUMARATE ER] busPIRone HCL 15 mg PO BID 12/03/19 12/03/19 Previous Rx's Medication Instructions Recorded DULoxetine HCL [Cymbalta] 20 mg PO DAILY #3 capsule. 04/16/20 OXcarbazepine [Trileptal] 600 mg PO BID #8 tab 04/18/20 Primidone [Mysoline] 250 mg PO BID #8 tablet 04/18/20 QUEtiapine FUMARATE [QUEtiapine 400 mg PO HS #4 tab.er.24h 04/18/20 FUMARATE ER] Allergies Allergy/AdvReac Type Severity Reaction Status Date / Time No Known Allergies Allergy Verified 04/18/20 17:53 Review of Systems ROS Statement: Those systems with pertinent positive or pertinent negative responses have been documented in the HPI. ROS Other: All systems not noted in ROS Statement are negative. Past Medical History Additional Past Medical History / Comment(s): 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, herniated disks, sciatica. WAS DX YEARS AGO WITH BENIGN TREMORS IN HANDS. lumbar epidural History of Any Multi-Drug Resistant Organisms: None Reported Past Surgical History: Orthopedic Surgery Additional Past Surgical History / Comment(s): 2 left foot surgeries(ORIF), HAVING FIRST PAIN PROCEDURE TODAY, orthopedic surgery left foot Past Anesthesia/Blood Transfusion Reactions: No Reported Reaction, Motion Sickness Past Psychological History: Anxiety, Bipolar, Depression, Panic Disorder Smoking Status: Current some day smoker Past Alcohol Use History: None Reported Past Drug Use History: Marijuana - Past Family History Mother History Unknown: Yes Family Medical History: No Reported History Additional Family Medical History / Comment(s): MOM HAD THYROID CANCER General Exam - General Exam Comments Initial Comments: GENERAL: Patient is well-developed and well-nourished. Patient is nontoxic and in no acute distress, does appear anxious. HEAD: Atraumatic, normocephalic. EYES: Pupils equal round and reactive to light, extraocular movements intact, sclera anicteric, conjunctiva are normal. Eyelids were unremarkable. ENT: TMs normal, nares patent, oropharynx clear without exudates. Moist mucous membranes. NECK: Normal range of motion, supple without lymphadenopathy or JVD. LUNGS: Unlabored respirations. Breath sounds clear to auscultation bilaterally and equal. No wheezes rales or rhonchi. HEART: Regular rate and rhythm without murmurs, rubs or gallops. ABDOMEN: Soft, nontender, normoactive bowel sounds. No guarding, no rebound. No masses appreciated. : Deferred MUSCULOSKELETAL: Normal extremities with adequate strength and normal range of motion, no pitting or edema. No clubbing or cyanosis. NEUROLOGICAL: Patient is alert and oriented x 3. Motor and sensory are also intact. Cranial nerves II through XII grossly intact. Symmetrical smile. Normal speech, normal gait. PSYCH: Does appear anxious. SKIN: Warm, Dry, normal turgor, no rashes or lesions noted. Limitations: no limitations Course Vital Signs 04/18/20 04/18/20 17:49 19:30 Temperature 97.8 F 97.8 F Pulse Rate 80 80 Respiratory 16 16 Rate Blood Pressure 144/85 144/85 O2 Sat by Pulse 97 97 Oximetry Medical Decision Making - Medical Decision Making Patient is a 30-year-old female here for psychiatric evaluation. She was here 2 days ago for med refill, was only able to give a few days worth, she's been having increasing anxiety, increasing racing thoughts and having suicidal ideation. Patient was evaluated by EPS. Patient does have an appointment with [facility] on Monday, in 4 days. Patient will be given a single dose of her 3 medications today in the ER and I will give her a prescription to get her through until her appointment on Monday. Patient is stable for discharge. She does have a safety plan in place. Return parameters were discussed with the patient and she verbalized understanding. - Lab Data Lab Results 04/18/20 04/18/20 Range/Units 18:22 18:22 Urine HCG, Qual Not Detected (Not Detectd) Urine Opiates Screen Not Detected (NotDetected) Ur Oxycodone Screen Not Detected (NotDetected) Urine Methadone Screen Not Detected (NotDetected) Ur Propoxyphene Screen Not Detected (NotDetected) Ur Barbiturates Screen Detected H (NotDetected) U Tricyclic Antidepress Detected H (NotDetected) Ur Phencyclidine Scrn Not Detected (NotDetected) Ur Amphetamines Screen Not Detected (NotDetected) U Methamphetamines Scrn Not Detected (NotDetected) U Benzodiazepines Scrn Not Detected (NotDetected) Urine Cocaine Screen Not Detected (NotDetected) U Marijuana (THC) Screen Detected H (NotDetected) Disposition Clinical Impression: Encounter for medication refill, Acute anxiety Disposition: HOME SELF-CARE Condition: Stable Instructions (If sedation given, give patient instructions): Anxiety (ED) Additional Instructions: Please return to the Emergency Department if symptoms worsen or any other concerns. Take medications as prescribed. Follow up with CM as discussed on Monday. Prescriptions: Primidone [Mysoline] 250 mg PO BID #8 tablet QUEtiapine FUMARATE [QUEtiapine FUMARATE ER] 400 mg PO HS #4 tab.er.24h OXcarbazepine [Trileptal] 600 mg PO BID #8 tab Is patient prescribed a controlled substance at d/c from ED?: No Referrals: None,Stated [Primary Care Provider] - 1-2 days
[2020-04-18 18:43] LABS: Amphetamine Screen,Urine Not Detected (NotDetected); Barbiturate Screen,Urine Detected (NotDetected); Benzodiazepines Screen,Urine Not Detected (NotDetected); Cocaine Screen,Urine Not Detected (NotDetected); Methadone Screen, Urine Not Detected (NotDetected); Opiate Screen,Urine Not Detected (NotDetected); Oxycodone Screen, Urine Not Detected (NotDetected); Phencyclidine Screen,Urine Not Detected (NotDetected); Tricyclic Antidepressant,Urine Detected (NotDetected); Urn Cannabinoid Scrn Detected (NotDetected)
[2020-04-18] MEDS ORDERED: PRIMIDONE 250 MG TAB PO STA (18:59)
[2020-04-18] MEDS ORDERED: OXcarbazepine 300 MG TAB PO STA (18:59)
[2020-04-18] MEDS ORDERED: QUEtiapine 400 MG TAB PO STA (18:59)
== END 2020-04-18 19:31 | disposition home or self-care (01) ==
LOC: EC 17:46
DX: F41.9 Anxiety disorder, unspecified (principal); R45.851 Suicidal ideations; F31.9 Bipolar disorder, unspecified; F17.200 Nicotine dependence, unspecified, uncomplicated; F41.0 Panic disorder [episodic paroxysmal anxiety]; Z79.899 Other long term (current) drug therapy; Z76.0 Encounter for issue of repeat prescription
CPT/HCPCS: 80306; 81025; 82075; 99285

== ENCOUNTER 2020-04-24 16:37 | Emergency (ER) | payer OTHER ==
[2020-04-24 16:46] VITALS: BP 124/75; PULSE 68; RESP 18; TEMP 97.7
--- NOTE | 2020-04-24 16:51 | ED ---
Recheck HPI - General Chief Complaint: Recheck/Abnormal Lab/Rx Stated Complaint: med refill Time Seen by Provider: 04/24/20 16:48 Source: patient Mode of arrival: ambulatory Limitations: no limitations - History of Present Illness Initial Comments: 30-year-old female presenting to the emergency room with a chief complaint of medication refill. Patient states there was miscommunication with her psychiatrist regarding her psychiatric medications. Patient states she sees the psychiatrist at [facility] on May 04. Patient states she needs a more days worth of Trileptal, Seroquel and primidone. Patient denies any homicidal, suicidal thoughts or ideations. Patient is not requesting psychiatric evaluation. States she finished her medication yesterday. She has no other complaints. - Related Data Home Medications Medication Instructions Recorded Confirmed DULoxetine HCL [Cymbalta] 60 mg PO BID 12/03/19 12/03/19 Primidone [Mysoline] 250 mg PO BID 12/03/19 12/03/19 QUEtiapine FUMARATE [QUEtiapine 150 mg PO HS 12/03/19 12/03/19 FUMARATE ER] busPIRone HCL 15 mg PO BID 12/03/19 12/03/19 Previous Rx's Medication Instructions Recorded DULoxetine HCL [Cymbalta] 20 mg PO DAILY #3 capsule. 04/16/20 OXcarbazepine [Trileptal] 600 mg PO BID #8 tab 04/18/20 Primidone [Mysoline] 250 mg PO BID #8 tablet 04/18/20 QUEtiapine FUMARATE [QUEtiapine 400 mg PO HS #4 tab.er.24h 04/18/20 FUMARATE ER] OXcarbazepine [Trileptal] 600 mg PO BID #18 tab 04/24/20 Primidone [Mysoline] 250 mg PO BID #18 tablet 04/24/20 QUEtiapine [SEROquel] 400 mg PO HS #9 tab 04/24/20 Allergies Allergy/AdvReac Type Severity Reaction Status Date / Time No Known Allergies Allergy Verified 04/24/20 16:46 Review of Systems ROS Statement: Those systems with pertinent positive or pertinent negative responses have been documented in the HPI. ROS Other: All systems not noted in ROS Statement are negative. Past Medical History Additional Past Medical History / Comment(s): 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, herniated disks, sciatica. WAS DX YEARS AGO WITH BENIGN TREMORS IN HANDS. lumbar epidural History of Any Multi-Drug Resistant Organisms: None Reported Past Surgical History: Orthopedic Surgery Additional Past Surgical History / Comment(s): 2 left foot surgeries(ORIF), HAVING FIRST PAIN PROCEDURE TODAY, orthopedic surgery left foot Past Anesthesia/Blood Transfusion Reactions: No Reported Reaction, Motion Sickness Past Psychological History: Anxiety, Bipolar, Depression, Panic Disorder Smoking Status: Current some day smoker Past Alcohol Use History: None Reported Past Drug Use History: Marijuana - Past Family History Mother History Unknown: Yes Family Medical History: No Reported History Additional Family Medical History / Comment(s): MOM HAD THYROID CANCER General Exam Limitations: no limitations General appearance: alert, in no apparent distress, obese Head exam: Present: atraumatic, normocephalic, normal inspection Eye exam: Present: normal appearance, PERRL, EOMI Pupils: Present: normal accommodation ENT exam: Present: normal exam, normal oropharynx, mucous membranes moist, TM's normal bilaterally, normal external ear exam Neck exam: Present: normal inspection, full ROM Respiratory exam: Present: normal lung sounds bilaterally. Absent: respiratory distress, wheezes, rales Cardiovascular Exam: Present: regular rate, normal rhythm, normal heart sounds Extremities exam: Present: normal inspection, full ROM, normal capillary refill Back exam: Present: normal inspection, full ROM Neurological exam: Present: alert, oriented X3 Psychiatric exam: Present: normal affect, anxious, other (Tremulous in the hands) Skin exam: Present: warm, dry, intact, normal color Course Vital Signs 04/24/20 16:42 Temperature 97.7 F Pulse Rate 68 Respiratory 18 Rate Blood Pressure 124/75 O2 Sat by Pulse 96 Oximetry Medical Decision Making - Medical Decision Making 30-year-old female presenting to the emergency department for medication refill. Patient is requesting refills for primodine 250mg BID, trileptal 600mg BID and seroquel HS. patient did not want any psychiatric evaluation. She is going to see her psychiatrist on May 04 for a refill. Return parameters discussed the patient was understanding and agreeable. Case discussed physician. Disposition Clinical Impression: Encounter for medication refill Disposition: HOME SELF-CARE Condition: Stable Instructions (If sedation given, give patient instructions): Quetiapine (By mouth) Additional Instructions: Take prescribed medication as directed. Follow up with his psychiatrist.Please return to the Emergency Department if symptoms worsen or any other concerns. Prescriptions: Primidone [Mysoline] 250 mg PO BID #18 tablet QUEtiapine [SEROquel] 400 mg PO HS #9 tab OXcarbazepine [Trileptal] 600 mg PO BID #18 tab Is patient prescribed a controlled substance at d/c from ED?: No Referrals: None,Stated [Primary Care Provider] - 1-2 days Time of Disposition: 17:12
== END 2020-04-24 17:28 | disposition home or self-care (01) ==
LOC: EC 16:37
DX: Z76.0 Encounter for issue of repeat prescription (principal); F41.9 Anxiety disorder, unspecified; F31.9 Bipolar disorder, unspecified; F41.0 Panic disorder [episodic paroxysmal anxiety]; F17.200 Nicotine dependence, unspecified, uncomplicated; Z79.899 Other long term (current) drug therapy
CPT/HCPCS: 99281

== ENCOUNTER 2020-05-28 17:42 | Emergency (ER) | payer OTHER ==
[2020-05-28 17:51] VITALS: RESP 18; TEMP 97.7
[2020-05-28 18:58] LABS: Appearance,Urine Cloudy (Clear); Bacteria,Urine Occasional /hpf; Bilirubin,Urine Negative (Negative); Blood,Urine Small (Negative); Color,Urine Yellow; Glucose,Urine (UA) Negative (Negative); Hyaline Casts,Urine 1 /lpf (0-2); Ketones,Urine Negative (Negative); Leukocyte Esterase,Urine Large (Negative); Mucus,Urine Rare /hpf; Nitrite,Urine Negative (Negative); PH, Urine 5.5 (5.0-8.0); Protein,Urine Trace (Negative); RBC,Urine 4 /hpf (0-5); Specific Gravity,Urine 1.021 (1.001-1.035); Squamous Epithelial Cell,Urine 10 /hpf (0-4); Urobilinogen,Urine <2.0 mg/dL (<2.0); WBC,Urine 47 /hpf (0-5)
[2020-05-28] MEDS ORDERED: CEPHALEXIN 500MG STARTER PACK 4 CAP BTL PO STA (19:14)
--- NOTE | 2020-05-28 19:38 | ED ---
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 Patient states she's had urgency frequency and dysuria. Patient states she initially thought should UTI was second-guessing if she is possibly developing HSV infection. Patient states she had slightly increased discharge denies concern for sexual transmitted diseases. Patient states she's been monogamous for the past 6 years with her . Patient denies any abdominal pain back pain flank pain fevers chills general malaise. Patient denies any nausea vomiting denies Prevacid. Remaining review of systems negative upon arrival patient appears well nontoxic no acute distress - Related Data Home Medications Medication Instructions Recorded Confirmed DULoxetine HCL [Cymbalta] 60 mg PO BID 12/03/19 12/03/19 Primidone [Mysoline] 250 mg PO BID 12/03/19 12/03/19 QUEtiapine FUMARATE [QUEtiapine 150 mg PO HS 12/03/19 12/03/19 FUMARATE ER] busPIRone HCL 15 mg PO BID 12/03/19 12/03/19 Previous Rx's Medication Instructions Recorded DULoxetine HCL [Cymbalta] 20 mg PO DAILY #3 capsule. 04/16/20 OXcarbazepine [Trileptal] 600 mg PO BID #8 tab 04/18/20 Primidone [Mysoline] 250 mg PO BID #8 tablet 04/18/20 QUEtiapine FUMARATE [QUEtiapine 400 mg PO HS #4 tab.er.24h 04/18/20 FUMARATE ER] OXcarbazepine [Trileptal] 600 mg PO BID #18 tab 04/24/20 Primidone [Mysoline] 250 mg PO BID #18 tablet 04/24/20 QUEtiapine [SEROquel] 400 mg PO HS #9 tab 04/24/20 Cephalexin [Keflex] 500 mg PO Q6HR 7 Days #28 cap 05/28/20 valACYclovir [Valtrex] 1,000 mg PO BID 7 Days #28 tablet 05/28/20 Allergies Allergy/AdvReac Type Severity Reaction Status Date / Time No Known Allergies Allergy Verified 05/28/20 17:51 Review of Systems ROS Statement: Those systems with pertinent positive or pertinent negative responses have been documented in the HPI. ROS Other: All systems not noted in ROS Statement are negative. Past Medical History Additional Past Medical History / Comment(s): 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, herniated disks, sciatica. WAS DX YEARS AGO WITH BENIGN TREMORS IN HANDS. lumbar epidural History of Any Multi-Drug Resistant Organisms: None Reported Past Surgical History: Orthopedic Surgery Additional Past Surgical History / Comment(s): 2 left foot surgeries(ORIF), HAVING FIRST PAIN PROCEDURE TODAY, orthopedic surgery left foot Past Anesthesia/Blood Transfusion Reactions: No Reported Reaction, Motion Sickness Past Psychological History: Anxiety, Bipolar, Depression, Panic Disorder Smoking Status: Current some day smoker Past Alcohol Use History: None Reported Past Drug Use History: Marijuana - Past Family History Mother History Unknown: Yes Family Medical History: No Reported History Additional Family Medical History / Comment(s): MOM HAD THYROID CANCER General Exam - General Exam Comments Initial Comments: General: The patient is awake and alert, in no distress, and does not appear acutely ill. Eye: Pupils are equal, round and reactive to light, extra-ocular movements are intact. No nystagmus. There is normal conjunctiva bilaterally. No signs of icterus. Cardiovascular: There is a regular rate and rhythm. No murmur, rub or gallop is appreciated. Respiratory: Lungs are clear to auscultation, respirations are non-labored, breath sounds are equal. No wheezes, stridor, rales, or rhonchi. Gastrointestinal: [Soft, non-distended, non-tender abdomen without masses or organomegaly noted. There is no rebound or guarding present. No CVA tenderness. : scant discharge, no adnexla or cervical motion tenderness. no obvious external lesions Musculoskeletal: Normal ROM, no tenderness. Strength 5/5. Sensation intact. Pulses equal bilaterally 2+. Neurological: A&O x 3. CN II-XII intact, There are no obvious motor or sensory deficits. Coordination appears grossly intact. Speech is normal. Skin: Skin is warm and dry and no rashes or lesions are noted. Psychiatric: Cooperative, appropriate mood & affect, normal judgment. Limitations: no limitations Course Vital Signs 05/28/20 05/28/20 17:48 19:56 Temperature 97.7 F Pulse Rate 73 70 Respiratory 18 18 Rate Blood Pressure 155/99 145/90 O2 Sat by Pulse 95 98 Oximetry Medical Decision Making - Medical Decision Making 30-year-old feel presented for chief complaint of dysuria urgency frequency. Urinalysis concerning for urinary tract infection. Patient has no flank pain no unilateral back pain or fevers chills. Patient has no obvious lesions but she states she sensation that she is developing an HSV outbreak. Patient will be prescribed L cycle very as well as Keflex. Patient is return parameters were discussed at length she verbalized understanding discussed the importance of [facility] follow up as well as with [employer] patient discharged appearing well - Lab Data Lab Results 05/28/20 05/28/20 05/28/20 Range/Units 18:42 18:42 18:42 Urine Color Yellow Urine Appearance Cloudy H (Clear) Urine pH 5.5 (5.0-8.0) Ur Specific [place] 1.021 (1.001-1.035) Urine Protein Trace H (Negative) Urine Glucose (UA) Negative (Negative) Urine Ketones Negative (Negative) Urine Blood Small H (Negative) Urine Nitrite Negative (Negative) Urine Bilirubin Negative (Negative) Urine Urobilinogen <2.0 (<2.0) mg/dL Ur Leukocyte Esterase Large H (Negative) Urine RBC 4 (0-5) /hpf Urine WBC 47 H (0-5) /hpf Ur Squamous Epith Cells 10 H (0-4) /hpf Urine Bacteria Occasional H (None) /hpf Hyaline Casts 1 (0-2) /lpf Urine Mucus Rare H (None) /hpf Urine HCG, Qual Not Detected (Not Detectd) Trichomonas Ag (Rapid) Negative (Negative) Disposition Clinical Impression: UTI (urinary tract infection) Disposition: HOME SELF-CARE Condition: Good Instructions (If sedation given, give patient instructions): Urinary Tract Infection in Women (ED) Additional Instructions: Please use medication as discussed. Please follow-up with family doctor in the next 2 days.. Please return to emergency room if the symptoms increase or worsen or for any other concerns. Prescriptions: Cephalexin [Keflex] 500 mg PO Q6HR 7 Days #28 cap valACYclovir [Valtrex] 1,000 mg PO BID 7 Days #28 tablet Is patient prescribed a controlled substance at d/c from ED?: No Referrals: None,Stated [Primary Care Provider] - 1-2 days Time of Disposition: 19:38
[2020-05-28 19:58] VITALS: BP 145/90; PULSE 70
== END 2020-05-28 19:59 | disposition home or self-care (01) ==
LOC: EC 17:42
DX: N39.0 Urinary tract infection, site not specified (principal); M19.09 Primary osteoarthritis, other specified site; F41.9 Anxiety disorder, unspecified; F32.9 Major depressive disorder, single episode, unspecified; F41.0 Panic disorder [episodic paroxysmal anxiety]; F17.200 Nicotine dependence, unspecified, uncomplicated; Z79.899 Other long term (current) drug therapy
CPT/HCPCS: 81001; 81025; 87070; 87086; 87491; 87591; 87808; 99283

== ENCOUNTER 2020-06-18 18:51 | Emergency (ER) | payer OTHER ==
[2020-06-18 19:06] VITALS: BP 132/85; PULSE 88; RESP 17; TEMP 98
[2020-06-18] MEDS ORDERED: AMOXIC-POT CLAV 875MG STARTER PACK 2 TAB BTL PO STA (20:30)
[2020-06-18] MEDS ORDERED: ACET/COD 300 MG/30 MG STARTER PACK 6 TAB BTL PO STA (20:30)
--- NOTE | 2020-06-18 20:31 | ED ---
ENT HPI - General Chief complaint: Dental/Oral Stated complaint: dental pain Time Seen by Provider: 06/18/20 20:04 Source: patient Mode of arrival: ambulatory Limitations: no limitations - History of Present Illness Initial comments: 30-year-old female presenting today for chief complaint of right front tooth pain. Patient states that her right front tooth has been hurting for the past 3 days. She states that her now and her upper jaw is hurting. Patient denies fever chills general malaise headache nausea vomiting swelling below the tongue or of the neck. Patient is no distal complaints and upon arrival she appears well nontoxic distress. Denies - Related Data Home Medications Medication Instructions Recorded Confirmed DULoxetine HCL [Cymbalta] 60 mg PO BID 12/03/19 12/03/19 Primidone [Mysoline] 250 mg PO BID 12/03/19 12/03/19 QUEtiapine FUMARATE [QUEtiapine 150 mg PO HS 12/03/19 12/03/19 FUMARATE ER] busPIRone HCL 15 mg PO BID 12/03/19 12/03/19 Previous Rx's Medication Instructions Recorded DULoxetine HCL [Cymbalta] 20 mg PO DAILY #3 capsule. 04/16/20 OXcarbazepine [Trileptal] 600 mg PO BID #8 tab 04/18/20 Primidone [Mysoline] 250 mg PO BID #8 tablet 04/18/20 QUEtiapine FUMARATE [QUEtiapine 400 mg PO HS #4 tab.er.24h 04/18/20 FUMARATE ER] OXcarbazepine [Trileptal] 600 mg PO BID #18 tab 04/24/20 Primidone [Mysoline] 250 mg PO BID #18 tablet 04/24/20 QUEtiapine [SEROquel] 400 mg PO HS #9 tab 04/24/20 Cephalexin [Keflex] 500 mg PO Q6HR 7 Days #28 cap 05/28/20 valACYclovir [Valtrex] 1,000 mg PO BID 7 Days #28 tablet 05/28/20 Amoxicillin/Potassium Clav 1 tab PO Q12HR 7 Days #14 tab 06/18/20 [Augmentin 875-125 Tablet] Allergies Allergy/AdvReac Type Severity Reaction Status Date / Time No Known Allergies Allergy Verified 06/18/20 19:06 Review of Systems ROS Statement: Those systems with pertinent positive or pertinent negative responses have been documented in the HPI. ROS Other: All systems not noted in ROS Statement are negative. Past Medical History Additional Past Medical History / Comment(s): 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, herniated disks, sciatica. WAS DX YEARS AGO WITH BENIGN TREMORS IN HANDS. lumbar epidural History of Any Multi-Drug Resistant Organisms: None Reported Past Surgical History: Orthopedic Surgery Additional Past Surgical History / Comment(s): 2 left foot surgeries(ORIF), HAVING FIRST PAIN PROCEDURE TODAY, orthopedic surgery left foot Past Anesthesia/Blood Transfusion Reactions: No Reported Reaction, Motion Sickness Past Psychological History: Anxiety, Bipolar, Depression, Panic Disorder Smoking Status: Current some day smoker, Vaper Past Alcohol Use History: Rare Past Drug Use History: Marijuana - Past Family History Mother History Unknown: Yes Family Medical History: No Reported History Additional Family Medical History / Comment(s): MOM HAD THYROID CANCER General Exam - General Exam Comments Initial Comments: General: The patient is awake and alert, in no distress Eye: Pupils are equal, round and reactive to light, extra-ocular movements are intact. No nystagmus. There is normal conjunctiva bilaterally. No signs of icterus. Ears, nose, mouth and throat: There are moist mucous membranes and no oral lesions. No swelling below the tongue no identifiable area of fluctuance or redness of the gum significant tooth decay of both front teeth, pain to percussion of right front tooth Neck: The neck is supple, there is no tenderness or JVD. No swelling of the neck or below the angle of the mandible Cardiovascular: There is a regular rate and rhythm. No murmur, rub or gallop is appreciated. Respiratory: Lungs are clear to auscultation, respirations are non-labored, breath sounds are equal. No wheezes, stridor, rales, or rhonchi. Musculoskeletal: Normal ROM, no tenderness. Strength 5/5. Sensation intact. Radial pulses equal bilaterally 2+. Neurological: A&O x 3. CN II-XII intact grossly, There are no obvious motor or sensory deficits. Coordination appears grossly intact. Speech is normal. Skin: Skin is warm and dry and no rashes or lesions are noted. Psychiatric: Cooperative, appropriate mood & affect, normal judgment. Limitations: no limitations Course Vital Signs 06/18/20 19:03 Temperature 98.0 F Pulse Rate 88 Respiratory 17 Rate Blood Pressure 132/85 O2 Sat by Pulse 99 Oximetry Medical Decision Making - Medical Decision Making Patient will be treated with oral antibiotics as well as Tylenol 3 and is to follow-up with dentist. There is no signs of Fred's angina or concern for systemic spread of infection at this time patient is agreeable to care plan and discharge at this time Disposition Clinical Impression: Pain, dental Disposition: HOME SELF-CARE Condition: Good Instructions (If sedation given, give patient instructions): Dental Abscess (ED), Toothache (ED) Additional Instructions: Please use medication as discussed. Please follow-up with dentist in the next 1-2 days. Please return to emergency room if the symptoms increase or worsen or for any other concerns. Prescriptions: Amoxicillin/Potassium Clav [Augmentin 875-125 Tablet] 1 tab PO Q12HR 7 Days #14 tab Is patient prescribed a controlled substance at d/c from ED?: No Referrals: None,Stated [Primary Care Provider] - 1-2 days Time of Disposition: 20:31
== END 2020-06-18 20:50 | disposition home or self-care (01) ==
LOC: EC 18:51
DX: K08.89 Other specified disorders of teeth and supporting structures (principal)
CPT/HCPCS: 99282

== ENCOUNTER 2020-08-29 20:47 | Emergency (ER) | payer OTHER ==
[2020-08-29 21:36] VITALS: RESP 18
[2020-08-29] MEDS ORDERED: AMOXIC-POT CLAV 875MG STARTER PACK 2 TAB BTL PO STA (22:11)
--- NOTE | 2020-08-29 22:11 | ED ---
General Adult HPI - General Chief complaint: ENT Stated complaint: Abscess on roof of mouth Time Seen by Provider: 08/29/20 21:37 Source: patient Mode of arrival: ambulatory Limitations: no limitations - History of Present Illness Initial comments: 30-year-old female presents to the emergency room for dental abscess. Patient reports she has an abscess on the roof of her mouth. States she has had this before. Patient states it is painful. Patient denies fevers. Denies difficulty swallowing. Patient has no other complaints at this time including shortness of breath, chest pain, abdominal pain, nausea or vomiting, headache, or visual changes. - Related Data Home Medications Medication Instructions Recorded Confirmed DULoxetine HCL [Cymbalta] 60 mg PO BID 12/03/19 12/03/19 Primidone [Mysoline] 250 mg PO BID 12/03/19 12/03/19 QUEtiapine FUMARATE [QUEtiapine 150 mg PO HS 12/03/19 12/03/19 FUMARATE ER] busPIRone HCL 15 mg PO BID 12/03/19 12/03/19 Previous Rx's Medication Instructions Recorded DULoxetine HCL [Cymbalta] 20 mg PO DAILY #3 capsule. 04/16/20 OXcarbazepine [Trileptal] 600 mg PO BID #8 tab 04/18/20 Primidone [Mysoline] 250 mg PO BID #8 tablet 04/18/20 QUEtiapine FUMARATE [QUEtiapine 400 mg PO HS #4 tab.er.24h 04/18/20 FUMARATE ER] OXcarbazepine [Trileptal] 600 mg PO BID #18 tab 04/24/20 Primidone [Mysoline] 250 mg PO BID #18 tablet 04/24/20 QUEtiapine [SEROquel] 400 mg PO HS #9 tab 04/24/20 Cephalexin [Keflex] 500 mg PO Q6HR 7 Days #28 cap 05/28/20 valACYclovir [Valtrex] 1,000 mg PO BID 7 Days #28 tablet 05/28/20 Amoxicillin/Potassium Clav 1 tab PO Q12HR 7 Days #14 tab 06/18/20 [Augmentin 875-125 Tablet] Amoxicillin/Potassium Clav 1 tab PO Q12HR #20 tab 08/29/20 [Augmentin 875-125 Tablet] Allergies Allergy/AdvReac Type Severity Reaction Status Date / Time No Known Allergies Allergy Verified 08/29/20 21:36 Review of Systems ROS Statement: Those systems with pertinent positive or pertinent negative responses have been documented in the HPI. ROS Other: All systems not noted in ROS Statement are negative. Past Medical History Additional Past Medical History / Comment(s): 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, herniated disks, sciatica. WAS DX YEARS AGO WITH BENIGN TREMORS IN HANDS. lumbar epidural History of Any Multi-Drug Resistant Organisms: None Reported Past Surgical History: Orthopedic Surgery Additional Past Surgical History / Comment(s): 2 left foot surgeries(ORIF), HAVING FIRST PAIN PROCEDURE TODAY, orthopedic surgery left foot Past Anesthesia/Blood Transfusion Reactions: No Reported Reaction, Motion Sickness Past Psychological History: Anxiety, Bipolar, Depression, Panic Disorder Smoking Status: Current some day smoker, Vaper Past Alcohol Use History: Rare Past Drug Use History: Marijuana - Past Family History Mother History Unknown: Yes Family Medical History: No Reported History Additional Family Medical History / Comment(s): MOM HAD THYROID CANCER General Exam Limitations: no limitations General appearance: alert Head exam: Present: atraumatic, normocephalic, normal inspection Eye exam: Present: normal appearance, PERRL, EOMI. Absent: scleral icterus, conjunctival injection, periorbital swelling ENT exam: Absent: normal oropharynx (Small 5 mm abscess behind tooth 8.) Neck exam: Present: normal inspection, full ROM. Absent: tenderness, meningismus, lymphadenopathy Respiratory exam: Present: normal lung sounds bilaterally. Absent: respiratory distress, wheezes, rales, rhonchi, stridor Cardiovascular Exam: Present: regular rate, normal rhythm, normal heart sounds. Absent: systolic murmur, diastolic murmur, rubs, gallop, clicks Course Vital Signs 08/29/20 21:32 Temperature 97.8 F Pulse Rate 63 Respiratory 18 Rate Blood Pressure 156/90 O2 Sat by Pulse 99 Oximetry Procedures - Incision & Drainage Consent Obtained: verbal consent Indication: Abscess Site: oral Size (cm): 1 Needle Aspiration Performed?: Yes I&D Drainage Obtained: Pus Patient Tolerated Procedure: well, no complications Medical Decision Making - Medical Decision Making Abscess was drained, purulent material expelled. Patient was started on Augmentin to cover for oral alexandra. She will follow-up with her dentist. She will return here for any worsening symptoms. Disposition Clinical Impression: Dental abscess Disposition: HOME SELF-CARE Condition: Good Instructions (If sedation given, give patient instructions): Dental Abscess (ED) Additional Instructions: Please take antibiotic as directed. Please follow-up with your doctor and dentist in one to 2 days. Return to the emergency room for any worsening symptoms. [facility] [address] [facility] [id number] (existing clients only) New clients: [phone] 1st consult: $50 (includes XRs) Usually 30% less than private dentist for visits after. [employer] [facility] [employer] Have to pay $50 for Xrays and rest is covered [phone] Prescriptions: Amoxicillin/Potassium Clav [Augmentin 875-125 Tablet] 1 tab PO Q12HR #20 tab Is patient prescribed a controlled substance at d/c from ED?: No Referrals: Kimberly Valles MD [REFERRING] - 1-2 days Time of Disposition: 22:10
[2020-08-29] MEDS ORDERED: IBUPROFEN 600 MG TAB PO STA (22:15)
[2020-08-29 22:33] VITALS: BP 147/85; PULSE 80; TEMP 97.7
== END 2020-08-29 22:33 | disposition home or self-care (01) ==
LOC: EC 20:47
DX: K04.7 Periapical abscess without sinus (principal); F41.9 Anxiety disorder, unspecified; F31.9 Bipolar disorder, unspecified; F17.290 Nicotine dependence, other tobacco product, uncomplicated; F12.90 Cannabis use, unspecified, uncomplicated
CPT/HCPCS: 41800; 99282

== ENCOUNTER 2020-09-15 00:30 | Emergency (ER) | payer OTHER ==
[2020-09-15 00:44] VITALS: TEMP 97.4
[2020-09-15] MEDS ORDERED: KETOROLAC 15 MG/ML 1 ML VIAL IM STA (01:00)
[2020-09-15] MEDS ORDERED: PHENAZOPYRIDINE 200 MG TAB PO STA (01:00)
--- NOTE | 2020-09-15 01:20 | ED ---
General Adult HPI - General Chief complaint: Urogenital Stated complaint: lower abdominal pain Time Seen by Provider: 09/15/20 00:46 Source: patient Mode of arrival: ambulatory - History of Present Illness Initial comments: 30 year-old female patient presents to the emergency department for evaluation of lower abdominal pressure, dysuria, and urinary frequency. Patient states she started having symptoms yesterday and they worsened significantly today. States she did take an amoxicillin yesterday due to concerns for possible UTI. States she did notice some vaginal bleeding today and states that her period is due to start, though she is two weeks late. Denies any fever or chills. States she is having some low back pain. Denies nausea or vomiting. Patient states she has a h istory of herpes and is concerned this could be an outbreak. Denies any known sores currently, but states she has not done a thorough inspection. Patient denies any recent rash, cough, shortness of breath, chest pain, diarrhea, constipation, numbness, tingling, dizziness, weakness, headache, visual changes, or any other complaints. - Related Data Home Medications Medication Instructions Recorded Confirmed DULoxetine HCL [Cymbalta] 60 mg PO BID 12/03/19 12/03/19 Primidone [Mysoline] 250 mg PO BID 12/03/19 12/03/19 QUEtiapine FUMARATE [QUEtiapine 150 mg PO HS 12/03/19 12/03/19 FUMARATE ER] busPIRone HCL 15 mg PO BID 12/03/19 12/03/19 Previous Rx's Medication Instructions Recorded DULoxetine HCL [Cymbalta] 20 mg PO DAILY #3 capsule. 04/16/20 OXcarbazepine [Trileptal] 600 mg PO BID #8 tab 04/18/20 Primidone [Mysoline] 250 mg PO BID #8 tablet 04/18/20 QUEtiapine FUMARATE [QUEtiapine 400 mg PO HS #4 tab.er.24h 04/18/20 FUMARATE ER] OXcarbazepine [Trileptal] 600 mg PO BID #18 tab 04/24/20 Primidone [Mysoline] 250 mg PO BID #18 tablet 04/24/20 QUEtiapine [SEROquel] 400 mg PO HS #9 tab 04/24/20 Cephalexin [Keflex] 500 mg PO Q6HR 7 Days #28 cap 05/28/20 valACYclovir [Valtrex] 1,000 mg PO BID 7 Days #28 tablet 05/28/20 Amoxicillin/Potassium Clav 1 tab PO Q12HR 7 Days #14 tab 06/18/20 [Augmentin 875-125 Tablet] Amoxicillin/Potassium Clav 1 tab PO Q12HR #20 tab 08/29/20 [Augmentin 875-125 Tablet] valACYclovir HCL [Valtrex] 2,000 mg PO Q12HR #4 tab 08/29/20 Nitrofurantoin Monohyd/M-Cryst 100 mg PO Q12HR #14 cap 09/15/20 [Macrobid] Phenazopyridine [Pyridium] 200 mg PO TID #18 tablet 09/15/20 Allergies Allergy/AdvReac Type Severity Reaction Status Date / Time No Known Allergies Allergy Verified 09/15/20 00:37 Review of Systems ROS Statement: Those systems with pertinent positive or pertinent negative responses have been documented in the HPI. ROS Other: All systems not noted in ROS Statement are negative. Past Medical History Additional Past Medical History / Comment(s): 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, herniated disks, sciatica. WAS DX YEARS AGO WITH BENIGN TREMORS IN HANDS. lumbar epidural History of Any Multi-Drug Resistant Organisms: None Reported Past Surgical History: Orthopedic Surgery Additional Past Surgical History / Comment(s): 2 left foot surgeries(ORIF), HAVING FIRST PAIN PROCEDURE TODAY, orthopedic surgery left foot Past Anesthesia/Blood Transfusion Reactions: No Reported Reaction, Motion Sic kness Past Psychological History: Anxiety, Bipolar, Depression, Panic Disorder Smoking Status: Vaper Past Alcohol Use History: Occasional Past Drug Use History: Marijuana - Past Family History Mother History Unknown: Yes Family Medical History: No Reported History Additional Family Medical History / Comment(s): MOM HAD THYROID CANCER General Exam General appearance: alert, in no apparent distress, other (This is a well- developed, well-nourished adult female patient in no acute distress. Vital signs upon presentation temperature 97.4F, pulse 69, respirations 20, blood pressure 138/84, pulse ox 99% on room air.) Eye exam: Present: normal appearance, PERRL, EOMI. Absent: scleral icterus, conjunctival injection, periorbital swelling ENT exam: Present: normal exam, normal oropharynx, mucous membranes moist Respiratory exam: Present: normal lung sounds bilaterally. Absent: respiratory distress, wheezes, rales, rhonchi, stridor Cardiovascular Exam: Present: regular rate, normal rhythm, normal heart sounds. Absent: systolic murmur, diastolic murmur, rubs, gallop, clicks GI/Abdominal exam: Present: soft, tenderness (suprapubic), normal bowel sounds. Absent: distended, guarding, rebound, rigid Back exam: Absent: CVA tenderness (R), CVA tenderness (L) Neurological exam: Present: alert, oriented X3, CN II-XII intact Psychiatric exam: Present: normal affect, normal mood Skin exam: Present: warm, dry, intact, normal color. Absent: rash Course Vital Signs 09/15/20 00:37 Temperature 97.4 F L Pulse Rate 69 Respiratory 20 Rate Blood Pressure 138/84 O2 Sat by Pulse 99 Oximetry Medical Decision Making - Medical Decision Making 30 year-old female patient presented for evaluation of lower abdominal pressure, dysuria, and urinary frequency. Physical exam did reveal suprapubic tenderness. No CVA tenderness. She is afebrile with normal vital signs. Denies any abnormal vaginal discharge. Denies any concern for STI. Urinalysis showed a truck was esterase, greater than 182 red blood cells, greater than 182 white blood cells, bacteria, yeast. We'll start patient on Macrobid pending culture. She is non. She is given Pyridium. She is instructed to increase fluid intake. Instructed to follow up with the primary care physician for recheck in 1-2 days. Return parameters were discussed in detail. She verbalizes understanding and agrees with this plan. My attending is Dr. Waldron. - Lab Data Lab Results 09/15/20 09/15/20 Range/Units 01:39 01:39 Urine Color Dark Red Urine Appearance Bloody H (Clear) Urine pH 6.0 (5.0-8.0) Ur Specific [place] >1.030 (1.001-1.035) Urine Protein 2+ (Negative) Urine Glucose (UA) Negative (Negative) Urine Ketones Trace (Negative) Urine Blood Large (Negative) Urine Nitrite Negative (Negative) Urine Bilirubin Negative (Negative) Urine Urobilinogen 4.0 (<2.0) mg/dL Ur Leukocyte Esterase Large (Negative) Urine RBC >182 H (0-5) /hpf Urine WBC >182 H (0-5) /hpf Ur Squamous Epith Cells 11 H (0-4) /hpf Urine Bacteria Occasional H (None) /hpf Urine Mucus Moderate H (None) /hpf Urine Yeast (Budding) Moderate H (None) /hpf Urine HCG, Qual Not Detected (Not Detectd) Disposition Clinical Impression: Urinary tract infection Disposition: HOME SELF-CARE Condition: Good Instructions (If sedation given, give patient instructions): Urinary Tract Infection in Women (ED) Additional Instructions: Increase water intake. Take pyridium three times daily to help with symptoms. Complete antibiotic prescription in full. Follow up with your primary care physician for recheck in 1-2 days. Return to the emergency department for any new, worsening, or concerning symptoms. Prescriptions: Nitrofurantoin Monohyd/M-Cryst [Macrobid] 100 mg PO Q12HR #14 cap Phenazopyridine [Pyridium] 200 mg PO TID #18 tablet Is patient prescribed a controlled substance at d/c from ED?: No Referrals: None,Stated [Primary Care Provider] - 1-2 days Time of Disposition: 02:39
[2020-09-15 02:13] LABS: Appearance,Urine Bloody (Clear); Color,Urine Dark Red
[2020-09-15 02:14] LABS: Bilirubin,Urine Negative (Negative); Blood,Urine Large (Negative); Glucose,Urine (UA) Negative (Negative); Ketones,Urine Trace (Negative); Leukocyte Esterase,Urine Large (Negative); Nitrite,Urine Negative (Negative); Protein,Urine 2+ (Negative); Specific Gravity,Urine >1.030 (1.001-1.035)
[2020-09-15 02:27] LABS: Bacteria,Urine Occasional /hpf; Budding Yeast,Urine Moderate /hpf; Mucus,Urine Moderate /hpf; RBC,Urine >182 /hpf (0-5); Squamous Epithelial Cell,Urine 11 /hpf (0-4); WBC,Urine >182 /hpf (0-5)
[2020-09-15] MEDS ORDERED: NITROFURANTOIN MONOHYD/M-CRYST 100 MG CAP PO STA (02:37)
[2020-09-15 03:08] VITALS: BP 138/78; PULSE 78; RESP 16
== END 2020-09-15 03:08 | disposition home or self-care (01) ==
LOC: EC 00:30
DX: N39.0 Urinary tract infection, site not specified (principal); F31.9 Bipolar disorder, unspecified; F41.9 Anxiety disorder, unspecified; F17.290 Nicotine dependence, other tobacco product, uncomplicated; F12.90 Cannabis use, unspecified, uncomplicated
CPT/HCPCS: 81001; 81025; 87086; 99284; 96372; J1885

== ENCOUNTER 2020-10-07 | Emergency (ER) | payer OTHER | END 2020-10-07 21:30 | disposition home or self-care (01) | CPT/HCPCS: 41800; 99282 ==

== ENCOUNTER 2020-10-11 | Emergency (ER) | payer OTHER | END 2020-10-11 18:20 | disposition home or self-care (01) ==

== ENCOUNTER 2021-04-28 17:39 | Emergency (ER) | payer OTHER ==
[2021-04-28 17:49] VITALS: BP 129/79; PULSE 80; RESP 16; TEMP 98.1
--- NOTE | 2021-04-28 18:08 | ED ---
General Adult HPI - General Chief complaint: Psychiatric Symptoms Stated complaint: Mental Health Time Seen by Provider: 04/28/21 17:45 Source: patient, RN notes reviewed, old records reviewed Mode of arrival: ambulatory Limitations: no limitations - History of Present Illness Initial comments: This is a 31-year-old female who is 7 months . Patient states she's on multiple psychiatric medications and she has run out because they have told her her appointment for her psychiatrist is until May 28. Patient states over the last 3 days she's not taken any of her meds because she ran out. Patient states she's been very depressed and tearful and having a lot of negative thoughts but no suicidal homicidal ideations. Patient does not want to do because she try to get an earlier appointment but they would not give her 1. Patient denies any physical complaints today. - Related Data Home Medications Medication Instructions Recorded Confirmed DULoxetine HCL [Cymbalta] 60 mg PO BID 12/03/19 04/28/21 Aspirin EC [Ecotrin Low Dose] 81 mg PO DAILY 04/28/21 04/28/21 Cephalexin [Keflex] 500 mg PO Q12HR 04/28/21 04/28/21 Pnv,Calcium 72/Iron/Folic Acid 1 tab PO DAILY 04/28/21 04/28/21 [ Plus Tablet] busPIRone HCl [Buspar] 10 mg PO TID 04/28/21 04/28/21 hydrOXYzine pamoate [Vistaril] 50 mg PO TID PRN 04/28/21 04/28/21 Previous Rx's Medication Instructions Recorded OXcarbazepine [Trileptal] 600 mg PO BID #18 tab 04/24/20 Primidone [Mysoline] 250 mg PO BID #18 tablet 04/24/20 QUEtiapine [SEROquel] 400 mg PO HS #9 tab 04/24/20 Allergies Allergy/AdvReac Type Severity Reaction Status Date / Time No Known Allergies Allergy Verified 04/28/21 18:40 Review of Systems ROS Statement: Those systems with pertinent positive or pertinent negative responses have been documented in the HPI. ROS Other: All systems not noted in ROS Statement are negative. Past Medical History Past Medical History: No Reported History Additional Past Medical History / Comment(s): 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, herniated disks, sciatica. WAS DX YEARS AGO WITH BENIGN TREMORS IN HANDS. lumbar epidural History of Any Multi-Drug Resistant Organisms: None Reported Past Surgical History: Orthopedic Surgery Additional Past Surgical History / Comment(s): 2 left foot surgeries(ORIF), HAVING FIRST PAIN PROCEDURE TODAY, orthopedic surgery left foot Past Anesthesia/Blood Transfusion Reactions: No Reported Reaction, Motion Sickness Past Psychological History: Anxiety, Bipolar, Depression, Panic Disorder Smoking Status: Vaper Past Alcohol Use History: Occasional Past Drug Use History: Marijuana - Past Family History Mother History Unknown: Yes Family Medical History: No Reported History Additional Family Medical History / Comment(s): MOM HAD THYROID CANCER General Exam - General Exam Comments Initial Comments: GENERAL: Patient is well-developed and well-nourished. Patient is nontoxic and well- hydrated and is in no acute distress. ENT: Neck is soft and supple. No significant lymphadenopathy is noted. Oropharynx is clear. Moist mucous membranes. Neck has full range of motion without eliciting any pain. EYES: The sclera were anicteric and conjunctiva were pink and moist. Extraocular movements were intact and pupils were equal round and reactive to light. Eyelids were unremarkable. PULMONARY: Unlabored respirations. Good breath sounds bilaterally. No audible rales rhonchi or wheezing was noted. CARDIOVASCULAR: There is a regular rate and rhythm without any murmurs gallops or rubs. SKIN: Skin is clear with no lesions or rashes and otherwise unremarkable. NEUROLOGIC: Patient is alert and oriented x3. Cranial nerves II through XII are grossly intact. MUSCULOSKELETAL: Normal extremities with adequate strength and full range of motion. LYMPHATICS: No significant lymphadenopathy is noted PSYCHIATRIC: Patient states she's very depressed denies suicidal or homicidal ideations. [place] states she's having difficulty sleeping Limitations: no limitations Course Vital Signs 04/28/21 17:46 Temperature 98.1 F Pulse Rate 80 Respiratory 16 Rate Blood Pressure 129/79 O2 Sat by Pulse 98 Oximetry Medical Decision Making - Medical Decision Making We called [facility] and they indicated to us that the patient had been not following up for appointments and so she ran out of her medications they don't want a refill her medications until they have seen her. I told the patient I am not comfortable filling her psychiatric medications because she is 7 months she needs to coordinate that between her psychiatrist and her [employer]. Patient is not suicidal or homicidal she states she is just very depressed lately. Disposition Clinical Impression: Medication refill, Non-compliant patient, History of bipolar disorder Disposition: HOME SELF-CARE Condition: Good Instructions (If sedation given, give patient instructions): Bipolar Disorder (ED) Is patient prescribed a controlled substance at d/c from ED?: No Referrals: None,Stated [Primary Care Provider] - 1-2 days Time of Disposition: 19:02
[2021-04-28 19:19] LABS: Amphetamine Screen,Urine Not Detected (NotDetected); Barbiturate Screen,Urine Detected (NotDetected); Benzodiazepines Screen,Urine Not Detected (NotDetected); Cocaine Screen,Urine Not Detected (NotDetected); Methadone Screen, Urine Not Detected (NotDetected); Opiate Screen,Urine Not Detected (NotDetected); Oxycodone Screen, Urine Not Detected (NotDetected); Phencyclidine Screen,Urine Not Detected (NotDetected); Tricyclic Antidepressant,Urine Not Detected (NotDetected); Urn Cannabinoid Scrn Detected (NotDetected)
== END 2021-04-28 19:24 | disposition home or self-care (01) ==
LOC: EC 17:39
DX: F99 Mental disorder, not otherwise specified (principal); Z91.19 Patient's noncompliance with other medical treatment and regimen; Z76.0 Encounter for issue of repeat prescription
CPT/HCPCS: 80306; 82075; 99284

== ENCOUNTER 2022-04-04 21:24 | Emergency (ER) | payer OTHER ==
[2022-04-04] MEDS ORDERED: AMOXIC-POT CLAV 875-125MG 1 EACH TAB PO STA (22:41)
[2022-04-04] MEDS ORDERED: DULoxetine HCL 30 MG CAPSULE.DR PO STA (22:42)
[2022-04-04] MEDS ORDERED: ACET/COD 300 MG/30 MG STARTER PACK 6 TAB BTL PO STA (22:58)
--- NOTE | 2022-04-04 22:58 | ED ---
General Adult HPI - General Chief complaint: Dental/Oral Stated complaint: Abscess Tooth, Facial Swelling, Dental Pain Time Seen by Provider: 04/04/22 21:48 Source: patient, RN notes reviewed Mode of arrival: ambulatory Limitations: no limitations - History of Present Illness Initial comments: 32-year-old female presents to the emergency department with complaints of left sided facial swelling related to known dental infection. Patient states she is scheduled to see the dentist in May but is now having pain and swelling on the left side. States she has not been on any antibiotics recently. She has been taking Tylenol and Motrin as needed for pain. Is tolerating oral intake without difficulty. Denies fever, chills, trismus, or difficulty swallowing. Also states she ran out of her duloxetine and is scheduled to see [facility] on the fourth. Patient is requesting a dose of medication in order to bridge the gap. No mental health complaints. - Related Data Home Medications Medication Instructions Recorded Confirmed DULoxetine HCL [Cymbalta] 60 mg PO BID 12/03/19 04/28/21 Aspirin EC [Ecotrin Low Dose] 81 mg PO DAILY 04/28/21 04/28/21 Cephalexin [Keflex] 500 mg PO Q12HR 04/28/21 04/28/21 Vit No.180/Iron/Folic 1 tab PO DAILY 04/28/21 04/28/21 [ Plus Tablet] busPIRone HCl [Buspar] 10 mg PO TID 04/28/21 04/28/21 hydrOXYzine pamoate [Vistaril] 50 mg PO TID PRN 04/28/21 04/28/21 Previous Rx's Medication Instructions Recorded OXcarbazepine [Trileptal] 600 mg PO BID #18 tab 04/24/20 Primidone [Mysoline] 250 mg PO BID #18 tablet 04/24/20 QUEtiapine [SEROquel] 400 mg PO HS #9 tab 04/24/20 Amoxic-Pot Clav 875-125Mg 1 tab PO BID 7 Days #14 tab 04/04/22 [Augmentin 875-125] Allergies Allergy/AdvReac Type Severity Reaction Status Date / Time No Known Allergies Allergy Verified 04/04/22 21:28 Review of Systems ROS Statement: Those systems with pertinent positive or pertinent negative responses have been documented in the HPI. ROS Other: All systems not noted in ROS Statement are negative. Past Medical History Past Medical History: No Reported History Additional Past Medical History / Comment(s): 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, herniated disks, sciatica. WAS DX YEARS AGO WITH BENIGN TREMORS IN HANDS. lumbar epidural History of Any Multi-Drug Resistant Organisms: None Reported Past Surgical History: Orthopedic Surgery Additional Past Surgical History / Comment(s): 2 left foot surgeries(ORIF), HAVING FIRST PAIN PROCEDURE TODAY, orthopedic surgery left foot Past Anesthesia/Blood Transfusion Reactions: No Reported Reaction, Motion Sickness Past Psychological History: Anxiety, Bipolar, Depression, Panic Disorder Smoking Status: Vaper Past Alcohol Use History: Occasional Past Drug Use History: Marijuana - Past Family History Mother History Unknown: Yes Family Medical History: No Reported History Additional Family Medical History / Comment(s): MOM HAD THYROID CANCER General Exam Limitations: no limitations General appearance: alert, in no apparent distress Expanded Teeth exam: Present: dental caries, gingival enlargement, other (Periapical abs cess at tooth #18 with surrounding gingival erythema and enlargement. Swelling does not extend beyond the mandible. No trismus or difficulty swallowing.) Throat exam: normal inspection Neck exam: Present: normal inspection, full ROM. Absent: tenderness, meningismus, lymphadenopathy Respiratory exam: Present: normal lung sounds bilaterally. Absent: respiratory distress, wheezes, rales, rhonchi, stridor Cardiovascular Exam: Present: regular rate, normal rhythm, normal heart sounds. Absent: systolic murmur, diastolic murmur, rubs, gallop, clicks Neurological exam: Present: alert, oriented X3 Psychiatric exam: Present: normal affect, normal mood Course Vital Signs 04/04/22 04/04/22 21:26 23:09 Temperature 97.9 F 98 F Pulse Rate 99 87 Respiratory 18 16 Rate Blood Pressure 169/91 150/74 O2 Sat by Pulse 96 98 Oximetry Medical Decision Making - Medical Decision Making 32-year-old female presents to the emergency department for evaluation of dental pain and facial swelling. Upon exam, patient is noted to have several dental caries, periapical abscess of tooth #18, and localized swelling along the left side of the mandible. Swelling does not extend into the mandibular space. There is no trismus or elevation of the tongue. Patient was started on Augmentin and given a Tylenol 3 starter pack. She is encouraged to call her dentist in the morning to schedule follow-up appointment. Patient was also given a dose of her Cymbalta as she ran out of this medication and is scheduled to see [facility] on the fourth. Return parameters discussed in detail. Patient verbalizes understanding and agrees with this plan. Attending: Vanita. Was pt. sent in by a medical professional or institution? @ No Did you speak to anyone other than the patient for history? @ No Did you review nursing and triage notes? @ Yes Were old charts reviewed? @ No Differential Diagnosis? @ Dental caries, periapical abscess, dental infection EKG interpreted by me (3pts min.)? @ None X-rays interpreted by me (1pt min.)? @ None CT interpreted by me (1pt min.)? @ None U/S interpreted by me (1pt. min.)? @ None What testing was considered but not performed? (CT, X-rays, U/S, labs)? Why? @ Considered CT of the soft tissues of the neck, however swelling does not extend into the submandibular or sublingual space making Frde angina unlikely. What meds were considered but not given? Why? @ Considered Motrin, but patient is prior to arrival. Did you discuss the management of the patient with other professionals? @ No Did you reconcile home meds? @ No Was smoking cessation discussed for >3mins.? @ No Was critical care preformed (if so, how long)? @ No Were there social determinants of health that impacted care today? How? (Homelessness, low income, unemployed, alcoholism, drug addiction, transportation, low edu. Level, literacy, decrease access to med. care, fpc, rehab)? @No Was there de-escalation of care discussed even if they declined? (Discuss DNR or withdrawal of care, Hospice)? @ No What co-morbidities impacted this encounter? (DM, HTN, Smoking, COPD, CAD, Cancer, CVA, Hep., AIDS, mental health diagnosis, sleep apnea, morbid obesity)? @ Mental health diagnosis, ran out of medication (duloxetine) but has appointment scheduled for follow up care Was patient admitted / discharged? @ Discharged Undiagnosed new problem with uncertain prognosis? @ No Drug Therapy requiring intensive monitoring for toxicity (Heparin, Nitro, Insulin, Cardizem)? @ No Were any procedures done? @ No Diagnosis/symptom? @ Periapical abscess; poor dentition Acute, or Chronic, or Acute on Chronic? @ Acute; acute on chronic Uncomplicated (without systemic symptoms) or Complicated (systemic symptoms)? @ Uncomplicated Side effects of treatment? @ None Exacerbation, Progression, or Severe Exacerbation] @ None Poses a threat to life or bodily function? @ No Disposition Clinical Impression: Dental abscess Disposition: HOME SELF-CARE Condition: Stable Instructions (If sedation given, give patient instructions): Dental Abscess (ED) Additional Instructions: You are being prescribed Augmentin which is an antibiotic that you will take twice daily for an dental infection. Call the dentist to request an appointment prior to May if available. Continue taking Tylenol or Motrin if needed for pain control. Keep your scheduled appointment with [facility] on the . Return to the emergency department with any new, worsening, or concerning symptoms. Prescriptions: Amoxic-Pot Clav 875-125Mg [Augmentin 875-125] 1 tab PO BID 7 Days #14 tab Is patient prescribed a controlled substance at d/c from ED?: No Referrals: None,Stated [Primary Care Provider] - 1-2 days Time of Disposition: 22:58
[2022-04-04 23:11] VITALS: BP 150/74; PULSE 87; RESP 16; TEMP 98
== END 2022-04-04 23:09 | disposition home or self-care (01) ==
LOC: EC 21:24
DX: K04.7 Periapical abscess without sinus (principal); F31.9 Bipolar disorder, unspecified; F41.9 Anxiety disorder, unspecified; F12.90 Cannabis use, unspecified, uncomplicated; F17.290 Nicotine dependence, other tobacco product, uncomplicated
CPT/HCPCS: 99282

== ENCOUNTER 2023-06-27 14:15 | Emergency (ER) | payer OTHER ==
[2023-06-27 14:52] VITALS: BP 149/87; PULSE 69; RESP 16; TEMP 97.8
--- NOTE | 2023-06-27 15:04 | ED ---
ENT HPI - General Chief complaint: Dental/Oral Stated complaint: R Dental Abscess Time Seen by Provider: 06/27/23 14:30 Source: patient, RN notes reviewed Mode of arrival: ambulatory Limitations: no limitations - History of Present Illness Initial comments: 33 year old female with chief complaint of dental pain. Patient dates that she has been suffering with poor dentition and multiple dental caries and abscesses over the last 5 to 10 years. She states that she has right-sided mandibular dental pain that radiates into her ear. She has a appointment with her dentist at the end of July. She has taken amoxicillin in the past for bacterial infections. She is taking Tylenol Motrin at home for symptomatic relief. Denies fevers, trismus, nausea, vomiting. - Related Data Home Medications Medication Instructions Recorded Confirmed DULoxetine HCL [Cymbalta] 60 mg PO BID 12/03/19 04/28/21 Aspirin EC [Ecotrin Low Dose] 81 mg PO DAILY 04/28/21 04/28/21 Cephalexin [Keflex] 500 mg PO Q12HR 04/28/21 04/28/21 Vit No.180/Iron/Folic 1 tab PO DAILY 04/28/21 04/28/21 [ Plus Tablet] busPIRone HCl [Buspar] 10 mg PO TID 04/28/21 04/28/21 hydrOXYzine pamoate [Vistaril] 50 mg PO TID PRN 04/28/21 04/28/21 Previous Rx's Medication Instructions Recorded OXcarbazepine [Trileptal] 600 mg PO BID #18 tab 04/24/20 Primidone [Mysoline] 250 mg PO BID #18 tablet 04/24/20 QUEtiapine [SEROquel] 400 mg PO HS #9 tab 04/24/20 Amoxic-Pot Clav 875-125Mg 1 tab PO BID 7 Days #14 tab 04/04/22 [Augmentin 875-125] Amoxicillin 500 mg PO Q8H #30 capsule 06/27/23 Allergies Allergy/AdvReac Type Severity Reaction Status Date / Time No Known Allergies Allergy Verified 04/04/22 21:28 Review of Systems ROS Statement: Those systems with pertinent positive or pertinent negative responses have been documented in the HPI. ROS Other: All systems not noted in ROS Statement are negative. Past Medical History Past Medical History: No Reported History Additional Past Medical History / Comment(s): 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, herniated disks, sciatica. WAS DX YEARS AGO WITH BENIGN TREMORS IN HANDS. lumbar epidural History of Any Multi-Drug Resistant Organisms: None Reported Past Surgical History: Orthopedic Surgery Additional Past Surgical History / Comment(s): 2 left foot surgeries(ORIF), HAVING FIRST PAIN PROCEDURE TODAY, orthopedic surgery left foot Past Anesthesia/Blood Transfusion Reactions: No Reported Reaction, Motion Sickness Past Psychological History: Anxiety, Bipolar, Depression, Panic Disorder Smoking Status: Vaper Past Alcohol Use History: Occasional Past Drug Use History: Marijuana - Past Family History Mother History Unknown: Yes Family Medical History: No Reported History Additional Family Medical History / Comment(s): MOM HAD THYROID CANCER General Exam Limitations: no limitations General appearance: alert, in no apparent distress Head exam: Present: atraumatic, normocephalic, normal inspection Eye exam: Present: normal appearance, PERRL, EOMI. Absent: scleral icterus, conjunctival injection, periorbital swelling ENT exam: Present: normal exam, mucous membranes moist Expanded Teeth exam: Present: other (Overall very poor dentition, multiple missing teeth with multiple fractured teeth and dental caries, patient has point tenderness along the right mandibular region. No overt area of erythema or purulence or abscess noted.) Neck exam: Present: normal inspection. Absent: tenderness, meningismus, lymphadenopathy Respiratory exam: Present: normal lung sounds bilaterally. Absent: respiratory distress, wheezes, rales, rhonchi, stridor Cardiovascular Exam: Present: regular rate, normal rhythm, normal heart sounds. Absent: systolic murmur, diastolic murmur, rubs, gallop, clicks GI/Abdominal exam: Present: soft, normal bowel sounds. Absent: distended, tenderness, guarding, rebound, rigid Extremities exam: Present: normal inspection, full ROM, normal capillary refill. Absent: tenderness, pedal edema, joint swelling, calf tenderness Back exam: Present: normal inspection Neurological exam: Present: alert, oriented X3, CN II-XII intact Psychiatric exam: Present: normal affect, normal mood Skin exam: Present: warm, dry, intact, normal color. Absent: rash Course Vital Signs 06/27/23 14:32 Temperature 97.8 F Pulse Rate 69 Respiratory 16 Rate Blood Pressure 149/87 O2 Sat by Pulse 98 Oximetry Medical Decision Making - Medical Decision Making Was pt. sent in by a medical professional or institution (EMELY Lazar, [employer], urgent c are, hospital, or fdc...) When possible be specific @ -No Did you speak to anyone other than the patient for history (EMS, parent, family, police, friend...)? What history was obtained from this source @ -No Did you review nursing and triage notes (agree or disagree)? Why? @ -I reviewed and agree with nursing and triage notes Were old charts reviewed (outside hosp., previous admission, EMS record, old EKG, old radiological studies, urgent care reports/EKG's, fdc records)? Report findings @ -No old charts were reviewed Differential Diagnosis (chest pain, altered mental status, abdominal pain women, abdominal pain men, vaginal bleeding, weakness, fever, dyspnea, syncope, headache, dizziness, GI bleed, back pain, seizure, CVA, palpatations, mental health, musculoskeletal)? @ -dental Pain, dental caries, pulpitis, gingivitis, dental abscess EKG interpreted by me (3pts min.). @ -None X-rays interpreted by me (1pt min.). @ -None done CT interpreted by me (1pt min.). @ -None done U/S interpreted by me (1pt. min.). @ -None done What testing was considered but not performed or refused? (CT, X-rays, U/S, labs)? Why? @ -None What meds were considered but not given or refused? Why? @ -None Did you discuss the management of the patient with other professionals (professionals i.e. EMELY Lazar, [employer], lab, RT, psych nurse, medical social worker, ambulatory technologist, teacher, planned giving officer, nurse case management)? Give summary @ -No Was smoking cessation discussed for >3mins.? @ -No Was critical care preformed (if so, how long)? @ -No Were there social determinants of health that impacted care today? How? (Homelessness, low income, unemployed, alcoholism, drug addiction, transportation, low edu. Level, literacy, decrease access to med. care, custodial, rehab)? @ -No Was there de-escalation of care discussed even if they declined (Discuss DNR or withdrawal of care, Hospice)? DNR status @ -No What co-morbidities impacted this encounter? (DM, HTN, Smoking, COPD, CAD, Cancer, CVA, ARF, Chemo, Hep., AIDS, mental health diagnosis, sleep apnea, morbid obesity)? @ -None Was patient admitted / discharged? Hospital course, mention meds given and route, prescriptions, significant lab abnormalities, going to OR and other pertinent info. @ -Charge. 33-year-old female with dental pain. On physical examination patient was found to have overall poor dentition, patient's complaint was noted to the right mandibular region with point tenderness located along one of her molars. There is no overt signs of abscess formation or area of drainage. , Patient's vitals are stable upon arrival, and she denies systemic symptoms such as fever chills body aches or nausea vomiting, for very limited clinical suspicion that patient is bacteremic from potential infection. Sleeps with localAt this time patient will be covered empirically with amoxicillin for potential infection. Patient advised to continue cycling Tylenol Motrin at home for symptomatic relief. Patient advised to keep appointment with dentist at the end of July for further evaluation and treatment. I discussed this case with my attending Dr. Guzman who is agreeable with plan and for discharge. Undiagnosed new problem with uncertain prognosis? @ -No Drug Therapy requiring intensive monitoring for toxicity (Heparin, Nitro, Insulin, Cardizem)? @ -No Were any procedures done? @ -No Diagnosis/symptom? @ -Dental pain, dental caries Acute, or Chronic, or Acute on Chronic? @ -Acute Uncomplicated (without systemic symptoms) or Complicated (systemic symptoms)? @ -Uncomplicated Side effects of treatment? @ -No Exacerbation, Progression, or Severe Exacerbation? @ -No Poses a threat to life or bodily function? How? (Chest pain, [place], [place], pneumonia, PE, COPD, DKA, ARF, appy, cholecystitis, CVA, Diverticulitis, Homicidal, Suicidal, threat to staff... and all critical care pts) @ -No Disposition Clinical Impression: Fracture of tooth, Dental caries Narrative: Please return to the Emergency Department if symptoms worsen or any other concerns. Disposition: HOME SELF-CARE Condition: Good Instructions (If sedation given, give patient instructions): Toothache (ED) Prescriptions: Amoxicillin 500 mg PO Q8H #30 capsule Is patient prescribed a controlled substance at d/c from ED?: No Referrals: None,Stated [Primary Care Provider] - 1-2 days Time of Disposition: 15:02
== END 2023-06-27 15:17 | disposition home or self-care (01) ==
LOC: EC 14:15
DX: K02.9 Dental caries, unspecified (principal); K03.81 Cracked tooth; F17.290 Nicotine dependence, other tobacco product, uncomplicated; F12.90 Cannabis use, unspecified, uncomplicated
CPT/HCPCS: 99282

== ENCOUNTER 2024-06-08 00:39 | Emergency (ER) | payer OTHER ==
[2024-06-08 00:48] VITALS: TEMP 97.7
--- NOTE | 2024-06-08 01:36 | ED ---
ENT HPI - General Chief complaint: Dental/Oral Stated complaint: R Oral Pain Time Seen by Provider: 06/08/24 01:34 Source: patient, RN notes reviewed, old records reviewed Mode of arrival: ambulatory Limitations: no limitations - History of Present Illness Initial comments: 34 female presented to the ER for evaluation of right lower jaw dental pain. Jim judge states for the past week she has been having pain noted to this area. She reports swelling over the past couple of days. She reports overall poor dentition and is hoping to get dental implants soon. She denies any fevers or chills, nausea or vomiting. No throat or tongue swelling. Patient was recently on amoxicillin for similar complaint. She has been taking [id number] ibuprofen and Tylenol for pain control with some relief. Patient also has been crushing up baby aspirin and placing this over painful area. No other complaints. - Related Data Home Medications Medication Instructions Recorded Confirmed DULoxetine HCL [Cymbalta] 60 mg PO BID 12/03/19 04/28/21 Aspirin EC [Ecotrin Low Dose] 81 mg PO DAILY 04/28/21 04/28/21 Cephalexin [Keflex] 500 mg PO Q12HR 04/28/21 04/28/21 Vit No.180/Iron/Folic 1 tab PO DAILY 04/28/21 04/28/21 [ Plus Tablet] busPIRone HCl [Buspar] 10 mg PO TID 04/28/21 04/28/21 hydrOXYzine pamoate [Vistaril] 50 mg PO TID PRN 04/28/21 04/28/21 Previous Rx's Medication Instructions Recorded OXcarbazepine [Trileptal] 600 mg PO BID #18 tab 04/24/20 Primidone [Mysoline] 250 mg PO BID #18 tablet 04/24/20 QUEtiapine [SEROquel] 400 mg PO HS #9 tab 04/24/20 Amoxic-Pot Clav 875-125Mg 1 tab PO BID 7 Days #14 tab 04/04/22 [Augmentin 875-125] Amoxicillin 500 mg PO Q8H #30 capsule 06/27/23 Amoxic-Pot Clav 875-125Mg 1 tab PO Q12HR #20 tab 06/08/24 [Augmentin 875-125] Allergies Allergy/AdvReac Type Severity Reaction Status Date / Time No Known Allergies Allergy Verified 06/08/24 00:48 Review of Systems ROS Statement: Those systems with pertinent positive or pertinent negative responses have been documented in the HPI. ROS Other: All systems not noted in ROS Statement are negative. Past Medical History Past Medical History: No Reported History Additional Past Medical History / Comment(s): 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, herniated disks, sciatica. WAS DX YEARS AGO WITH BENIGN TREMORS IN HANDS. lumbar epidural History of Any Multi-Drug Resistant Organisms: None Reported Past Surgical History: Orthopedic Surgery Additional Past Surgical History / Comment(s): 2 left foot surgeries(ORIF), HAVING FIRST PAIN PROCEDURE TODAY, orthopedic surgery left foot Past Anesthesia/Blood Transfusion Reactions: No Reported Reaction, Motion Sickness Past Psychological History: Anxiety, Bipolar, Depression, Panic Disorder Smoking Status: Current every day smoker, Vaper Past Alcohol Use History: Occasional Past Drug Use History: Marijuana - Past Family History Mother History Unknown: Yes Family Medical History: No Reported History Additional Family Medical History / Comment(s): MOM HAD THYROID CANCER General Exam Limitations: no limitations Course Vital Signs 06/08/24 06/08/24 00:46 02:30 Temperature 97.7 F Pulse Rate 55 L 58 L Respiratory 18 16 Rate Blood Pressure 160/91 107/63 O2 Sat by Pulse 100 97 Oximetry Medical Decision Making - Medical Decision Making Was pt. sent in by a medical professional or institution (JIM Lazar, [employer], urgent care, hospital, or custodial...) When possible be specific @ -No Did you speak to anyone other than the patient for history (EMS, parent, family, police, friend...)? What history was obtained from this source @ -No Did you review nursing and triage notes (agree or disagree)? Why? @ -I reviewed and agree with nursing and triage notes Were old charts reviewed (outside hosp., previous admission, EMS record, old EKG, old radiological studies, urgent care reports/EKG's, custodial records)? Report findings @ -No old charts were reviewed Differential Diagnosis (chest pain, altered mental status, abdominal pain women, abdominal pain men, vaginal bleeding, weakness, fever, dyspnea, syncope, headache, dizziness, GI bleed, back pain, seizure, CVA, palpatations, mental health, musculoskeletal)? @ -Dental abscess, Fred angina, fractured tooth,... This list is not meant to be all-inclusive EKG interpreted by me (3pts min.). @ -None done X-rays interpreted by me (1pt min.). @ -None done CT interpreted by me (1pt min.). @ -None done U/S interpreted by me (1pt. min.). @ -None done What testing was considered but not performed or refused? (CT, X-rays, U/S, labs)? Why? @ -None What meds were considered but not given or refused? Why? @ -None Did you discuss the management of the patient with other professionals (professionals i.e. , PA, [employer]ER, lab, RT, psych nurse, medical social consultant, bilingual customer service, teacher, security vehicle patrol officer, pillowcase folder)? Give summary @ -No Was smoking cessation discussed for >3mins.? @ -No Was critical care preformed (if so, how long)? @ -No Were there social determinants of health that impacted care today? How? (Homelessness, low income, unemployed, alcoholism, drug addiction, transportation, low edu. Level, literacy, decrease access to med. care, detention, rehab)? @ -No Was there de-escalation of care discussed even if they declined (Discuss DNR or withdrawal of care, Hospice)? DNR status @ -No What co-morbidities impacted this encounter? (DM, HTN, Smoking, COPD, CAD, Cancer, CVA, ARF, Chemo, Hep., AIDS, mental health diagnosis, sleep apnea, morbid obesity)? @ -None Was patient admitted / discharged? Hospital course, mention meds given and route, prescriptions, significant lab abnormalities, going to OR and other pertinent info. @ -[Discharge. 34-year female presented the ER for evaluation of dental pain. Vitals within acceptable limits. Exam notable for overall poor dentition there is no drainable abscess on exam. No tongue or throat swelling. Patient in no signs of acute distress nontoxic-appearing. Patient was started on Augmentin, first dose in the ER for infection prophylaxis. Patient given Tylenol 3 and Orajel for pain control in the emergency department. Patient is stable for discharge at this time with close outpatient follow-up with a dentist, referral given. I advised [id number] ibuprofen and Tylenol for pain control outpatient. Strict return parameters discussed. Patient discharged in stable condition. Patient verbally expressed understanding agree with care plan. Case discussed with ED attending, Dr. Masno. Undiagnosed new problem with uncertain prognosis? @ -No Drug Therapy requiring intensive monitoring for toxicity (Heparin, Nitro, Insulin, Cardizem)? @ -No Were any procedures done? @ -No Diagnosis/symptom? @ -Dental pain Acute, or Chronic, or Acute on Chronic? @ -Acute Uncomplicated (without systemic symptoms) or Complicated (systemic symptoms)? @ -Uncomplicated Side effects of treatment? @ -No Exacerbation, Progression, or Severe Exacerbation? @ -No Poses a threat to life or bodily function? How? (Chest pain, [place], [place], pneumonia, PE, COPD, DKA, ARF, appy, cholecystitis, CVA, Diverticulitis, Homicidal, Suicidal, threat to staff... and all critical care pts) @ -No Disposition Clinical Impression: Dental caries, Pain, dental Disposition: HOME SELF-CARE Condition: Stable Instructions (If sedation given, give patient instructions): Toothache (ED) Additional Instructions: Follow-up closely with dentist. Continue taking [id number] ibuprofen and Tylenol for pain control. Take Augmentin as prescribed. Return to the ER for any new or worsening concerns. Prescriptions: Amoxic-Pot Clav 875-125Mg [Augmentin 875-125] 1 tab PO Q12HR #20 tab Is patient prescribed a controlled substance at d/c from ED?: No Referrals: None,Stated [Primary Care Provider] - 1-2 days Arnie Wynne DDS [STAFF PHYSICIAN] - 1-2 days Haylie Garza DDS [STAFF PHYSICIAN] - 1-2 days Forms: Area PCPs Time of Disposition: 02:14
[2024-06-08] MEDS: Acetaminophen-Codeine 300-30mg TAB PO STA (01:45)
[2024-06-08] MEDS: BENZOCAINE 20 % GEL 11.9 GM TUBE MM ONE (01:45)
[2024-06-08] MEDS: AMOXIC-POT CLAV 875-125MG 1 EACH TAB PO STA (01:45)
[2024-06-08 02:33] VITALS: BP 107/63; PULSE 58; RESP 16
== END 2024-06-08 02:30 | disposition home or self-care (01) ==
LOC: EC 00:39
DX: K02.9 Dental caries, unspecified (principal); F17.290 Nicotine dependence, other tobacco product, uncomplicated
CPT/HCPCS: 99283

== ENCOUNTER 2024-07-24 14:51 | Emergency (ER) | payer OTHER ==
[2024-07-24 15:09] VITALS: BP 120/71; PULSE 81; TEMP 98.1
--- NOTE | 2024-07-24 15:51 | XR ---
EXAMINATION TYPE: XR chest 2V DATE OF EXAM: 07/24/2024 3:40 PM COMPARISON: None TECHNIQUE: XR chest 2V Frontal and lateral views of the chest. CLINICAL INDICATION:Female, 34 years old with history of cough; FINDINGS: Lungs/Pleura: There is no evidence of pleural effusion, focal consolidation, or pneumothorax. Pulmonary vascularity: Unremarkable. Heart/mediastinum: Cardiomediastinal silhouette is unremarkable. Musculoskeletal: No acute osseous pathology. IMPRESSION: No acute cardiopulmonary disease/process. [facility], , 07/24/2024 3:48 PM
--- NOTE | 2024-07-24 16:24 | ED ---
URI HPI - General Source: patient, RN notes reviewed Mode of arrival: ambulatory Limitations: no limitations <Ira Whittaker - Last Filed: 07/24/24 16:23> <Court Coates - Last Filed: 07/24/24 17:52> - General Chief Complaint: Upper Respiratory Infection Stated Complaint: MINGO Time Seen by Provider: 07/24/24 16:23 - History of Present Illness Initial Comments: Quick [id number] female presenting for cough x 1 week with congestion and fevers. States family members have similar symptoms. (Ira Whittaker) - Related Data Home Medications Medication Instructions Recorded Confirmed DULoxetine HCL [Cymbalta] 60 mg PO BID 12/03/19 04/28/21 Aspirin EC [Ecotrin Low Dose] 81 mg PO DAILY 04/28/21 04/28/21 Cephalexin [Keflex] 500 mg PO Q12HR 04/28/21 04/28/21 Vit No.180/Iron/Folic 1 tab PO DAILY 04/28/21 04/28/21 [ Plus Tablet] busPIRone HCl [Buspar] 10 mg PO TID 04/28/21 04/28/21 hydrOXYzine pamoate [Vistaril] 50 mg PO TID PRN 04/28/21 04/28/21 Previous Rx's Medication Instructions Recorded OXcarbazepine [Trileptal] 600 mg PO BID #18 tab 04/24/20 Primidone [Mysoline] 250 mg PO BID #18 tablet 04/24/20 QUEtiapine [SEROquel] 400 mg PO HS #9 tab 04/24/20 Amoxic-Pot Clav 875-125Mg 1 tab PO BID 7 Days #14 tab 04/04/22 [Augmentin 875-125] Amoxicillin 500 mg PO Q8H #30 capsule 06/27/23 Amoxic-Pot Clav 875-125Mg 1 tab PO Q12HR #20 tab 06/08/24 [Augmentin 875-125] Albuterol Sulfate [Albuterol 1 puff PO Q4-6H PRN #8.5 gm 07/24/24 Sulfate Hfa] Allergies Allergy/AdvReac Type Severity Reaction Status Date / Time No Known Allergies Allergy Verified 07/24/24 15:09 Review of Systems ROS Other: All systems not noted in ROS Statement are negative. <Ira Whittaker - Last Filed: 07/24/24 16:23> ROS Other: All systems not noted in ROS Statement are negative. <Court Coates - Last Filed: 07/24/24 17:52> ROS Statement: Those systems with pertinent positive or pertinent negative responses have been documented in the HPI. Past Medical History Past Medical History: No Reported History Additional Past Medical History / Comment(s): 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, herniated disks, sciatica. WAS DX YEARS AGO WITH BENIGN TREMORS IN HANDS. lumbar epidural History of Any Multi-Drug Resistant Organisms: None Reported Past Surgical History: Orthopedic Surgery Additional Past Surgical History / Comment(s): 2 left foot surgeries(ORIF), HAVING FIRST PAIN PROCEDURE TODAY, orthopedic surgery left foot Past Anesthesia/Blood Transfusion Reactions: No Reported Reaction, Motion Sickness Past Psychological History: Anxiety, Bipolar, Depression, Panic Disorder Smoking Status: Current every day smoker, Vaper Past Alcohol Use History: Occasional Past Drug Use History: Marijuana - Past Family History Mother History Unknown: Yes Family Medical History: No Reported History Additional Family Medical History / Comment(s): MOM HAD THYROID CANCER <Ira Whittaker - Last Filed: 07/24/24 16:23> General Exam Limitations: no limitations <Ira Whittaker - Last Filed: 07/24/24 16:23> - General Exam Comments Initial Comments: Visual Physical Exam Vital signs reviewed General: Well-appearing, nontoxic, no acute distress. Head: Normocephalic, atraumatic Eyes: PERRLA, EOMI ENT: Airway patent Chest: Nonlabored breathing Skin: No visual rash, normal skin tone Neuro: Alert and oriented 3 Musculoskeletal: No gross abnormalities (Ira Whittaker) Course Vital Signs 07/24/24 15:06 Temperature 98.1 F Pulse Rate 81 Respiratory 22 Rate Blood Pressure 120/71 O2 Sat by Pulse 95 Oximetry Medical Decision Making <Ira Whittaker - Last Filed: 07/24/24 16:23> - Medical Decision Making I completed the quick note portion of this chart signed Iar Whittaker PA-C (Ira Whittaker) - Lab Data Lab Results 07/24/24 Range/Units 15:17 Influenza Type A (PCR) Not Detected (Not Detectd) Influenza Type B (PCR) Not Detected (Not Detectd) RSV (PCR) Not Detected (Not Detectd) SARS-CoV-2 (PCR) Not Detected (Not Detectd) Disposition <Ira Whtitaker - Last Filed: 07/24/24 16:23> Is patient prescribed a controlled substance at d/c from ED?: No Time of Disposition: 17:52 <Court Coates - Last Filed: 07/24/24 17:52> Clinical Impression: Upper respiratory tract infection Disposition: HOME SELF-CARE Condition: Good Instructions (If sedation given, give patient instructions): Upper Respiratory Infection (ED) Additional Instructions: Follow-up with PCP. Report back to ER with any new or worsening symptoms Prescriptions: Albuterol Sulfate [Albuterol Sulfate Hfa] 1 puff PO Q4-6H PRN #8.5 gm PRN Reason: Shortness Of Breath Referrals: None,Stated [Primary Care Provider] - 1-2 days
[2024-07-24 16:48] LABS: Influenza A Not Detected (Not Detectd); Influenza B Not Detected (Not Detectd); RSV Not Detected (Not Detectd)
[2024-07-24 18:40] VITALS: RESP 18
== END 2024-07-24 18:39 | disposition home or self-care (01) ==
LOC: EC 14:51
DX: J06.9 Acute upper respiratory infection, unspecified (principal); F17.290 Nicotine dependence, other tobacco product, uncomplicated
CPT/HCPCS: 71046; 87636; 99284